=== PATIENT | female | born 1955 | race Caucasian/White ===

== ENCOUNTER 2017-08-11 14:47 | Emergency (ER) | payer MEDICARE, SELFPAY ==
[2017-08-11 14:48] VITALS: BP 161/85; PULSE 82; RESP 15; TEMP 36.9; O2SAT 100; BMI 31.4
--- NOTE | 2017-08-11 15:16 | US_ITS ---
US Gallbladder (abdomen limited) INDICATION: RUQ pain COMPARISON: None TECHNIQUE: Ultrasonographic grayscale and limited Doppler investigation of the right upper quadrant FINDINGS: The liver measures 15.2 cm and demonstrates normal echogenicity. Flow in the portal vein is hepatopedal. Common bile duct measures 2.4 mm. There is a single stone in the gallbladder. The stone is large and measures approximately 4 cm. There is no evidence of globular wall thickening or pericholecystic fluid. There is no evidence of ultrasonographic Bender's sign. Views of the pancreas are limited. The right kidney measures 10 cm in length and is without evidence of hydronephrosis. US/Gallbladder IMPRESSION: Large solitary gallstone without evidence of acute cholecystitis on this ultrasound. at 1706 Reported and signed by: Victoria Eugene MD Electronically Signed: Victoria Eugene MD at 16:05 EDT Tel , Service support ,
--- NOTE | 2017-08-11 15:28 | ED.VISSUMM ---
- ER Visit Summary Date of Service: 08/11/17 Chief Complaint: Abdominal pain History of Present Illness: The patient is a 62 F presenting for evaluation secondary to abdominal pain. Patient states over the course last week and a half she really has not felt well. Patient states that she has been having waxing and waning right upper quadrant abdominal pain that radiates through to her right flank. Patient states that it comes and goes, it is associated with some worsening with eating. She endorses that she has some nausea associated with it but no vomiting. She denies any diarrhea but states that she did have a single mucousy stool today. No fevers associated with it. Review of systems otherwise negative. Physical Examination: Vital signs within normal limits. Well-nourished female no acute distress. No conjunctival pallor no scleral icterus. Moist mucous membranes. No JVD. Heart regular rate and rhythm lungs clear. Abdomen tender in the right upper quadrant no guarding or rebound negative Bender sign. There is right-sided CVA tenderness to percussion without any evidence of overlying vesicular rash. Normal distal pulses, calves are supple and equally symmetric. Remainder physical otherwise unremarkable. Test Results: CBC, chemistry, liver panel, lipase, urinalysis unremarkable. Right upper quadrant ultrasound with flank ultrasound shows a large gallstone in the gallbladder without evidence of cholecystitis. Kidney is normal. Emergency Department Course and Treatment: Patient presented for evaluation secondary to right upper quadrant pain with some radiation to the flank. She did have some worsening about an hour after she would eat things, there is concern for gallbladder pathology. Patient's laboratory workup was found to be unremarkable. Patient's imaging shows evidence of a large gallstone. Given the patient's overall clinical picture, I do believe that this likely is an element of biliary colic from cholelithiasis. Patient was recommended on a low-fat diet. She did request to be sent home with some nausea medication she will be given a dose of Zofran in the emergency department will be discharged with a course of the same. Patient will be given a follow-up with Dr. Kim Cain. Patient understands signs and symptoms for which to return. Disposition: Discharge Impression: 1. Biliary colic 2. Cholelithiasis without cholecystitis This note was generated with [employer]ation software. It may contain incorrect words, spelling, and punctuation that were not noted in review of the chart prior to signing ED Disposition - Plan for ED Patient: Disposition: Home or Assisted Living Chief Complaint: Abd Pain Diagnosis: Biliary colic, Cholelithiasis Instructions: ED Abdominal Pain Gallstone Poss Prescriptions: Ondansetron [Zofran Odt] 4 mg PO Q8H PRN PRN #10 tab PRN Reason: Nausea Referrals: Kim Cain MD [STAFF PHYSICIAN] - 1-2 Weeks
[2017-08-11 15:49] LABS: Absolute Lymphocyte Count 1.91 X10^3/ul (0.83-4.51); Absolute Neutrophil Count 3.5 X10^3/uL (2.0-7.7); Basophil# 0.08 X10^3/uL; Basophil% 1.2 % (0-1); Eosinophil# 0.47 X10^3/uL; Eosinophils% 7.3 % (0-5); Hematocrit 35.4 % (37-47); Hemoglobin 11.3 g/dl (12.0-15.0); Lymphocyte # 1.91 X10^3/ul (4.0); Lymphocyte % 29.6 % (19-41); Mean Corp Hgb Conc 31.9 g/gl (32-36); Mean Corpuscular Hgb 28.3 pg (27.0-32.0); Mean Corpuscular Volume 88.5 fL (81-99); Mean Platelet Vol. 9.9 fl (6.2-12.0); Monocyte# 0.47 X10^3/uL; Monocyte% 7.3 % (0-10); Neutrophil # 3.51 X10^3/uL (2.7-7.7); Neutrophil % 54.4 % (47-70); Platelet Count 402 K/mm3 (150-450); RBC Distribution Width CV 14.6 % (11.6-14.6); RBC Distribution Width SD 46.6 fl (35.1-43.9); White Blood Count 6.5 K/mm3 (4.4-11.0)
[2017-08-11 15:50] LABS: POSITIVE COUNT NO; POSITIVE DIFFERENTIAL NO; POSITIVE MORPHOLOGY NO
[2017-08-11 16:04] LABS: AST(SGOT) 10 U/L (15-37); Alanine Aminotransfer ALT/SGPT 15 U/L (13-56); Albumin, Serum 3.4 g/dL (3.2-5.0); Alkaline Phosphatase 62 U/L (45-117); Anion Gap 7 (5-15); BUN 17 mg/dL (7-18); BUN/Creat Ratio 19.2 RATIO (10-20); Calcium,Total 8.8 mg/dL (8.5-10.1); Chloride 104 mmol/L (98-107); Creatinine, Serum 0.89 mg/dL (0.55-1.02); EST Glomerular Filtration Rate 68 mL/min (>60); Est Glom Filt Rate - Afr Amer 82 mL/min (>60); Estimated Creatinine Clearance 59.78 ml/min; Globulin 3.4 g/dL (2.2-4.2); Glucose 92 mg/dL (74-106); Lipase 135 U/L (73-393); Potassium 3.9 mmol/L (3.5-5.1); Protein, Total 6.8 g/dL (6.4-8.2); Sodium Level 140 mmol/L (136-145)
[2017-08-11 16:22] LABS: Bacteria 0 SEEN /hpf (None Seen); Mucous, Urine 0 SEEN /hpf (<or=2+); Red Blood Cells-Urine 0 SEEN /hpf (0-5); White Blood Cells 0 SEEN /hpf (0-5)
[2017-08-11 16:38] LABS: Color, Urine Yellow (Yellow); Glucose, Dipstick Normal (Normal); Ketone-Dipstick Negative (Negative); Leukocyte Esterase-Dipstick 25 /ul (Negative); Nitrite-Dipstick Negative (Negative); Occult Blood-Urine 10 /ul (Negative); Protein-Dipstick Negative (Negative); Specific Gravity, Urine 1.015 (1.002-1.030); Urine Bilirubin Dipstick Negative (Negative); Urine Clarity Clear (Clear); Urine Urobilinogen Normal (Normal)
[2017-08-11 17:01] VITALS: BP 153/80; PULSE 63; RESP 17; O2SAT 100
[2017-08-11 17:03] LABS: Squamous Epithelial Cells - UA 0-5 SEEN /hpf (5-10)
[2017-08-11] MEDS: Ondansetron ODT 4 MG Tablet PO (17:27)
[2017-08-11 17:41] VITALS: PULSE 60; RESP 16; O2SAT 100
--- NOTE | 2017-08-11 17:42 | ED.RN ---
PT GIVEN VERBAL AND WRITTEN DISCHARGE INSTRUCTIONS AND HOME GOING PRESCRIPTIONS. PT VERBALIZES UNDERSTANDING. PT IV D/C AND COVERED WITH 2X2 GAUZE AND PAPER TAPE. PT TO FOLLOW UP WITH SURGEON. PT AMBULATORY HOME BY SELF. DRESSED SELF AND AMBULATES OUT OF DEPT. WITHOUT ASSISTANCE.
== END 2017-08-11 17:44 | disposition home or self-care (01) ==
PROVIDERS: Emergency Provider Emergency Medicine; Family Provider Nurse Practitioner; PCP Nurse Practitioner
DX: K80.50 Calculus of bile duct without cholangitis or cholecystitis without obstruction (principal); M19.90 Unspecified osteoarthritis, unspecified site; Z98.1 Arthrodesis status
CPT/HCPCS: 76705; 80053; 81001; 83690; 85025; 87077; 87086; 87088; 87186; 99284; A4216

== ENCOUNTER → 2017-09-03 14:40 | Outpatient (CLI) | payer MEDICARE, SELFPAY ==
--- NOTE | 2017-09-03 14:41 | VDLE_ITS ---
Reason For Study: RLE Pain RIGHT LEFT CFV is compressible, spontaneous, phasic, CFV is compressible, spontaneous, phasic, competent and demonstrates normal competent, and demonstrates normal augmentation. augmentation. FV is compressible, spontaneous, phasic, competent and demonstrates normal augmentation. POP V is compressible, spontaneous, phasic, competent and demonstrates normal augmentation. T/P Trunk is compressible. PTV is compressible. RT PerV is compressible. Rt GSV ablated. Procedure Exam performed in department. A preliminary report was called and/or faxed to Dr. Rodríguez. Interpretation Summary Deep veins of the right lower extremity are patent and compressible segmentally. There is no evidence of right lower extremity deep vein thrombosis. Valvular competence appears intact within the proximal deep venous system on the right . The right great saphenous vein has been previously ablated. Ordering Physician: Dimple Rodríguez Referring Physician: Nevin Boyer Performed By: Callie Hollingsworth RDCS, RVT
== END ==
PROVIDERS: Family Provider Nurse Practitioner; PCP Nurse Practitioner; Visit Provider Podiatrist
DX: I87.2 Venous insufficiency (chronic) (peripheral) (principal); M79.604 Pain in right leg; I82.409 Acute embolism and thrombosis of unspecified deep veins of unspecified lower extremity
CPT/HCPCS: 93971

== ENCOUNTER → 2017-09-12 16:53 | Outpatient (CLI) | payer MEDICARE, SELFPAY ==
[2017-09-12 17:55] LABS: Absolute Lymphocyte Count 2.72 X10^3/ul (0.83-4.51); Absolute Neutrophil Count 3.2 X10^3/uL (2.0-7.7); Basophil# 0.05 X10^3/uL; Basophil% 0.7 % (0-1); Eosinophil# 0.28 X10^3/uL; Eosinophils% 4.2 % (0-5); Hematocrit 38.6 % (37-47); Lymphocyte # 2.72 X10^3/ul (4.0); Lymphocyte % 40.5 % (19-41); Mean Corp Hgb Conc 31.1 g/gl (32-36); Mean Corpuscular Hgb 27.5 pg (27.0-32.0); Mean Corpuscular Volume 88.3 fL (81-99); Mean Platelet Vol. 10.3 fl (6.2-12.0); Monocyte# 0.49 X10^3/uL; Monocyte% 7.3 % (0-10); Neutrophil # 3.17 X10^3/uL (2.7-7.7); Neutrophil % 47.2 % (47-70); Platelet Count 392 K/mm3 (150-450); RBC Distribution Width CV 13.7 % (11.6-14.6); RBC Distribution Width SD 44.6 fl (35.1-43.9); Red Blood Count 4.37 M/mm3 (4.2-5.4); White Blood Count 6.7 K/mm3 (4.4-11.0)
[2017-09-12 18:01] LABS: POSITIVE COUNT NO; POSITIVE DIFFERENTIAL NO; POSITIVE MORPHOLOGY NO
[2017-09-12 18:14] LABS: Partial Thromboplast Time 30.4 Seconds (24.1-36.2)
[2017-09-12 18:28] LABS: ALB/GLOB Ratio 1.2 RATIO (0.9-2.4); AST(SGOT) 17 U/L (15-37); Alanine Aminotransfer ALT/SGPT 22 U/L (13-56); Albumin, Serum 4.2 g/dL (3.2-5.0); Alkaline Phosphatase 65 U/L (45-117); Anion Gap 8 (5-15); BUN 18 mg/dL (7-18); BUN/Creat Ratio 20.6 RATIO (10-20); Calcium,Total 9.3 mg/dL (8.5-10.1); Chloride 104 mmol/L (98-107); Creatinine, Serum 0.87 mg/dL (0.55-1.02); EST Glomerular Filtration Rate 69 mL/min (>60); Est Glom Filt Rate - Afr Amer 84 mL/min (>60); Globulin 3.4 g/dL (2.2-4.2); Glucose 83 mg/dL (74-106); Potassium 3.8 mmol/L (3.5-5.1); Protein, Total 7.6 g/dL (6.4-8.2); Sodium Level 141 mmol/L (136-145)
== END ==
PROVIDERS: Family Provider Nurse Practitioner; PCP Nurse Practitioner; Visit Provider Internal Medicine
DX: Z01.818 Encounter for other preprocedural examination (principal)
CPT/HCPCS: 36415; 80053; 85025; 85610; 85730

== ENCOUNTER → 2017-09-14 08:45 | Outpatient (CLI) | payer MEDICARE, SELFPAY ==
--- NOTE | 2017-09-14 08:49 | VDLE_ITS ---
Reason For Study: LEG SWELLING RIGHT LEFT CFV is compressible, spontaneous, phasic, CFV is compressible, spontaneous, phasic, competent and demonstrates normal competent, and demonstrates normal augmentation. augmentation. FV is compressible, spontaneous, phasic, FV is compressible, spontaneous, phasic, competent and demonstrates normal competent and demonstrates normal augmentation. augmentation. POP V is compressible, spontaneous, phasic, POP V is compressible, spontaneous, phasic, competent and demonstrates normal competent and demonstrates normal augmentation. augmentation. T/P Trunk is compressible. T/P Trunk is compressible. PTV is compressible. PTV is compressible. RT PerV is compressible. LT PerV is compressible. GSV ablated. SFJ is competent SFJ is INCOMPETENT with reflux greater GSV is INCOMPETENT with reflux greater than .5 sec ASV at SFJ is INCOMPETENT with than .5 sec and diameter of .30 x .28 cm reflux greater than .5 sec and diameter ASV at SFJ is INCOMPETENt with reflux of .37 x .41 cm greater than .5 sec and diameter of .39 SSV is INCOMPETENT with reflux greater x .40 cm than .5 sec and diameter of .23 x .23 cm SSV diminutive unable to assess GSV branch distal calf is INCOMPETENT with SSV branch is INCOMPETENT with reflux reflux greater than .5 sec. greater than .5 sec and diameter of.40 x .42 Procedure cm. Exam performed in department. Interpretation Summary Deep veins of the lower extremities are bilaterally patent and compressible segmentally. There is no evidence of deep vein thrombosis on either side. Valvular competence appears intact within the proximal deep venous systems bilaterally. The right sapheno-femoral junction is incompetent . The left sapheno-femoral junction is competent . The right greater saphenous vein has been ablated. The left greater saphenous vein is patent and compressible. The left greater saphenous vein is incompetent. The right accessory saphenous vein at the right sapheno-femoral junction is incompetent. The left accessory saphenous vein at the left sapheno-femoral junction is incompetent. A branch of the right greater saphenous vein in the right calf is incompetent. The right small saphenous vein is patent and incompetent. The left small saphenous vein is diminutive in size and could not be assessed. A branch of the left small saphenous vein is incompetent. Ordering Physician: Dimple Rodríguez Referring Physician: Nevin Boyer Performed By: Lynn Barrera RVT
== END ==
PROVIDERS: Family Provider Nurse Practitioner; PCP Nurse Practitioner; Visit Provider Podiatrist
DX: R60.0 Localized edema (principal); I87.2 Venous insufficiency (chronic) (peripheral); I82.409 Acute embolism and thrombosis of unspecified deep veins of unspecified lower extremity; M79.604 Pain in right leg
CPT/HCPCS: 93970

== ENCOUNTER 2017-10-01 05:44 | Day surgery (SDC) | payer MEDICARE, SELFPAY ==
[2017-10-01] VITALS (10 sets, daily range): BP systolic 93–161; BP diastolic 51–84; PULSE 58–81; RESP 16–18; TEMP 36.4–37.3; O2SAT 94–100; BMI 32.8
--- NOTE | 2017-10-01 | GALL_PTH ---
PATIENT: HATTIE DAILY LOC: [facility] [place] U#:[id number] AGE/SX: 62/F ROOM: RE10/01/[address]: Dr. Kim Cain MD : [id number] BED: DIS: 10/01/2017 SPEC #: [id number] RECD: 10/01/17 13:43 STATUS: KILEY VIOLA #: [id number] DINESH: 10/01/17 00:[address]: Kim Cain DEPT: SURGICAL PATHOLOGY RECD BY: Frnacisco Tong ENTERED: 10/01/17 13:43 SP TYPE: MATEO GUSTAFSON DR: Nevin Boyer, SENIOR CONTROLS ANALYST-C Tissues: Gallbladder, NOS Procedures: Surgery Specimen Level III HEADER OPERATION: Laparoscopic cholecystectomy with intraoperative cholangiogram PRE-OP DIAGNOSIS: Calculus of gallbladder without cholecystitis without obstruction TISSUE SUBMITTED: Gallbladder MICROSCOPIC DIAGNOSIS Gallbladder: Chronic cholecystitis and cholelithiasis. A benign pericystic lymph node with reactive changes. SJ:racheal 10/02/17 MICROSCOPIC DESCRIPTION Slides are reviewed. GROSS DESCRIPTION Received is one container labeled with the patient's name and designated gallbladder. The specimen consists of a gallbladder measuring 10.5 cm in length and up to 3.5 cm in diameter. The external surface is pink-wood, smooth and glistening for the most part. Focally it is granular, hemorrhagic and contains cautery artifact. The gallbladder contains a very small amount of green-yellow mucoid bile and multiple irregular to ovoid brown to yellow stones measuring in aggregate 4.5 x 5 x 3 cm and 1.5 to 3.5 cm in greatest dimension. The largest stone is present at the fundus. The mucosa is bile-stained and without any mass lesions. The gallbladder wall measures up to 0.2 cm in thickness. An ovoid piece of wood-pink tissue is noted close to cystic duct, a possible lymph node. Miscellaneous Machine Operator sections from the gallbladder and the cystic duct and including the entire possible lymph node are submitted in one cassette. / CECILY:racheal 10/01/17 TC:3 CPT: 11459
--- NOTE | 2017-10-01 05:53 | EKG12_ITS ---
Test Reason : PRE-OP Blood Pressure : / mmHG Vent. Rate : 076 BPM Atrial Rate : 076 BPM P-R Int : 174 ms QRS Dur : 090 ms QT Int : 410 ms P-R-T Axes : 040 -09 000 degrees QTc Int : 461 ms Normal sinus rhythm Normal ECG Confirmed by CHERYL FONTANEZ, TIEN ([id number]), research editor SHAHRZAD ROSA ([id number]) on 10/04/2017 1:04:25 PM Referred By: Kim Cain Confirmed By:TIEN LUNA MD
--- NOTE | 2017-10-01 07:15 | RAD_ITS ---
STUDY: INTRAOPERATIVE CHOLANGIOGRAM. REASON FOR EXAM: Female, 62 years old. Laparoscopic cholecystectomy. FLUOROSCOPY TIME (if supplied): (0:04) minutes/seconds TECHNIQUE: And intraoperative cholangiogram was performed by the surgeon. Single image was submitted. COMPARISON: None. FINDINGS: The common bile duct is opacified. No intraluminal filling defect is seen. There is free flow of contrast into the duodenum. RAD/Cholangiogram/ O R,Initial IMPRESSION: Unremarkable intraoperative cholangiogram of the common bile duct. Electronically Signed: Laryr Sethi MD at 9:36 EDT Tel [phone], Service support ,
--- NOTE | 2017-10-01 07:18 | OP.PN_ITS ---
Immediate Post-Op Note Date of Procedure: 10/01/17 Primary Surgeon/Physician: Kim Cain auto bumper straightener: NOT,DEFINED Pre-Operative Diagnosis: cholelithiasis Post-Operative Diagnosis: cholelithiasis, cholecystitis Surgery/Procedure Performed:: laparoscopic cholecystectomy with intraoperative cholangiograms Description of Surgical Findings:: cholangiograms - no lesions in CBD, good flow into duodenum Estimated Blood Loss: < 10 ml Specimen's removed: gallbladder and contents Drains: none Type of Anesthesia:: General ASA Class: ASA2 Mod Systematic Disease - Admit VTE Documentation VTE Present on Admission: Yes VTE Mechan Device Prophylaxis: SCD's
--- NOTE | 2017-10-01 07:18 | PCM.DC.GB ---
Discharge Diet: No Restrictions Discharge Activity: Return to Normal Activity, May not drive while taking narcotic pain medications. Return to work on:: 10/15/17 Lifting Restrictions: no lifting greater than 20 pounds for 2 weeks Call your doctor if your incision/area has: Continuous Slow Oozing, Foul Smelling Discharge Call your doctor if you observe: Fever of 101 or Higher Additional Dressing/Incision Instructions:: Leave dressings in place. May get wet in shower. Do not soak - no tub baths/swimming until further notice Allergies/Adverse Reactions: Allergies lisinopril Adverse Reaction (Verified 10/01/17 06:13) COUGHING Medications to take at Discharge Acetaminophen [Pain Relief] 1,500 mg PO DAILY 09/24/17 Naproxen [Naprosyn] 250 mg PO DAILY PRN PRN 09/24/17 Hydrocodone Bitart/Apap 5-325 [[place] 5MG-325MG] 1 tab PO Q6H PRN PRN 3 Days #12 tab 10/01/17 Lorazepam [Ativan] 0.5 mg PO X1 10/01/17 The following prescriptions were given: Hydrocodone Bitart/Apap 5-325 [[place] 5MG-325MG] 1 tab PO Q6H PRN PRN 3 Days #12 tab PRN Reason: Pain Primary Care Physician: Nevin Boyer [Primary Care Provider] - Please Follow Up With: Kim Cain MD - call When: to be seen in 7-10 days, please call for date and time, thank you
--- NOTE | 2017-10-01 08:39 | PCM.OPRPT ---
Report of Operation Date of Procedure: 10/01/17 Pre-Operative Diagnosis: cholelithiasis Post-Operative Diagnosis: cholelithiasis, cholecystitis Surgery/Procedure Performed:: laparoscopic cholecystectomy with intraoperative cholangiograms Description of Surgical Findings:: cholangiograms - no lesions in CBD, good flow into duodenum narrow fabrics weaver: NOT,DEFINED Type of Anesthesia:: General Anesthesiologist: Devorah Meyer Specimen's removed: gallbladder and contents Drains: none Estimated Blood Loss (mL): < 10 ml Fluids Replaced: 1100 ml Description of Procedure: After informed consent was given, the patient was brought to the Operating Room and placed in the supine position. Appropriate time out protocol was followed. The patient was then placed under general endotracheal anesthesia. The abdomen was then prepped with a sterile surgical skin preparation and sterile surgical drapes were placed. The superior umbilical skin fold was grasped with penetrating clamps and the skin and subcutaneous tissues were infiltrated with local anesthetic. A skin incision was then made with a 15 blade scalpel. The anterior abdominal wall was elevated and a Veress needle was carefully inserted into the intraabdominal cavity. It was checked to be in the proper position with a normal saline drop test. A CO2 pneumoperitoneum was then created. Once this was achieved, then the Veress needle was removed and an 11mm trocar was placed in its stead. A 10mm laparoscope was then inserted into the trocar and careful attention was directed to the intraabdominal contents. There was no evidence of injury to any intraabdominal organs from insertion of the Veress needle or the trocar. Of note, patient had previous umbilical hernia repair and there was mesh present. Under direct visualization, a 5mm subxiphoid trocar and two lateral 5mm right subcostal trocars were placed. The skin and subcutaneous tissues at these sites were infiltrated with local anesthetic prior to placement of these trocars. Attention was then directed to the right upper quadrant of the abdomen. Graspers were placed in the lateral trocars to grasp the distal aspect of the gallbladder and direct it cephalad and to grasp the gallbladder at Hartmans pouch and direct it laterally. Dissection then began on the proximal gallbladder continuing down to the area of the triangle of Calot to bluntly dissect out the cystic duct. The neck of the gallbladder was identified and blunt dissection continued to dissect out a segment of the cystic duct. A clip was then placed on the neck of the gallbladder. A small ductotomy was then made. A Ranfac catheter was brought in through a separate skin incision and placed into the cystic duct. An intraoperative cholangiogram was performed under fluoroscopy. The xray revealed no lesions in the common bile duct, arborization of the biliary tree, and good flow into the duodenum. The Ranfac catheter was then removed and two clips were placed proximal to the ductotomy and the cystic duct was then transected. The cystic artery was visualized and bluntly isolated and then two clips were placed proximally and one clip distally and then it was transected between the proximal and distal clips. The gallbladder was then from the liver bed using electrocautery and thus able to be brought out of the umbilical port. It was then forwarded to pathology for analysis. The liver bed was carefully examined. There was no evidence of bile leakage or bleeding. The cystic duct stump and cystic artery stump had their clips intact and there was no evidence of bile leakage or bleeding. The remainder of the abdomen was grossly normal. The CO2 was released and all trocars removed intact. The periumbilical fascia was approximated with a [id number] 0 prolene suture. All skin incisions were closed with 4-0 monocryl in a subdermal fashion. Cavilol and Steristrips were used to reinforce the skin closure. Sterile dressings were applied to all wounds. The patient was extubated and brought to the Recovery Room in stable condition. - Complications none noted - Admit VTE Documentation VTE Present on Admission: Yes VTE Mechan Device Prophylaxis: SCD's
[2017-10-01] MEDS: HYDROcodone Bitartrate/Apap 5/325 Tablet PO (10:42)
[2017-10-01] MEDS: Lactated Ringers 1,000 ML 75 ML IV (12:06)
== END 2017-10-01 15:49 | disposition home or self-care (01) ==
LOC: SDC 05:47 → AC 05:49
PROVIDERS: Family Provider Nurse Practitioner; PCP Nurse Practitioner; Visit Provider Surgery
PROC: (CPT 47610; principal; 2017-10-01 06:55)
DX: K80.10 Calculus of gallbladder with chronic cholecystitis without obstruction (principal); I10 Essential (primary) hypertension; M19.90 Unspecified osteoarthritis, unspecified site; M51.36 Other intervertebral disc degeneration, lumbar region; Z86.718 Personal history of other venous thrombosis and embolism; M32.9 Systemic lupus erythematosus, unspecified; I73.00 Raynaud's syndrome without gangrene; Z79.899 Other long term (current) drug therapy; E66.9 Obesity, unspecified; Z68.34 Body mass index [BMI] 34.0-34.9, adult; Z71.3 Dietary counseling and surveillance
CPT/HCPCS: 47563; 74300; 76000; 88304; 93005; J7050; J7120; J2405

== ENCOUNTER 2017-10-08 13:04 | Outpatient (RCR) | payer BC, SELFPAY ==
[2017-10-08 13:40] VITALS: BP 164/96; PULSE 72; RESP 18; TEMP 36.6; BMI 33.1
--- NOTE | 2017-10-08 16:53 | PCM.WC.HP ---
(1) Chronic venous insufficiency Status: Chronic Current Visit: Yes Code(s): I87.2 - Venous insufficiency (chronic) (peripheral) (2) Venous stasis dermatitis Status: Chronic Current Visit: Yes Qualifiers: Laterality: right Qualified Code(s): I87.2 - Venous insufficiency (chronic) (peripheral) Code(s): I87.2 - Venous insufficiency (chronic) (peripheral) (3) Hemosiderin pigmentation of lower extremity due to varicose veins Status: Chronic Current Visit: Yes Code(s): L81.9 - Disorder of pigmentation, unspecified; I83.899 - Varicose veins of unspecified lower extremity with other complications (4) Lipodermatosclerosis Status: Chronic Current Visit: Yes Code(s): I83.10 - Varicose veins of unspecified lower extremity with inflammation (5) Venous ulcer of ankle Status: Chronic Current Visit: Yes Qualifiers: Varicose vein presence: with varicose veins Laterality: right Non-pressure ulcer stage: limited to breakdown of skin Qualified Code(s): I83.013 - Varicose veins of right lower extremity with ulcer of ankle; L97.311 - Non-pressure chronic ulcer of right ankle limited to breakdown of skin Code(s): I83.003 - Varicose veins of unspecified lower extremity with ulcer of ankle; L97.309 - Non-pressure chronic ulcer of unspecified ankle with unspecified severity (6) Osteoarthritis Status: Chronic Current Visit: No Code(s): M19.90 - Unspecified osteoarthritis, unspecified site (7) Lupus (systemic lupus erythematosus) Status: Chronic Current Visit: No Code(s): M32.9 - Systemic lupus erythematosus, unspecified (8) Degenerative disc disease, lumbar Status: Chronic Current Visit: No Code(s): M51.36 - Other intervertebral disc degeneration, lumbar region (9) Raynauds disease Status: Chronic Current Visit: No Qualifiers: Raynaud?s-associated gangrene presence: without gangrene Qualified Code(s): I73.00 - Raynaud's syndrome without gangrene Code(s): I73.00 - Raynaud's syndrome without gangrene (10) Recent major surgery Status: Acute Current Visit: Yes Code(s): Z98.890 - Other specified postprocedural states (11) History of superficial phlebitis Status: Chronic Current Visit: No Code(s): Z86.79 - Personal history of other diseases of the circulatory system (12) Post-phlebitic syndrome Status: Chronic Current Visit: Yes Code(s): I87.009 - Postthrombotic syndrome without complications of unspecified extremity (13) Hypertension Status: Chronic Current Visit: No Qualifiers: Hypertension type: essential hypertension Qualified Code(s): I10 - Essential (primary) hypertension Code(s): I10 - Essential (primary) hypertension History of Present Illness Date of Service: 10/08/17 Chief Complaint: Chronic venous insufficiency, venous stasis dermatitis, hyperpigmentation, lipodermatosclerosis, venous ulceration near the right medial malleolus. History of Wound: This is a 62-year-old female with a long-standing history of chronic venous disease. 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 She has been treated for venous ulcerations in the right lower extremity in the past. In fact, patient has previously undergone an endovenous laser ablation procedure in the right lower extremity in the remote past, though medical records are not currently available. She also has a history of acute superficial thrombophlebitis in the right lower extremity many years ago on one occasion. The patient is active. She claims to sleep flat at night. She presents with an ulceration near the right medial malleolus, which has recently developed spontaneously. The patient has chronic venous changes in her right lower extremity, which include hyperpigmentation and lipodermatosclerosis in the gaiter area medially. She denies significant swelling in her lower extremities. Past Medical History Past Medical History: Chronic Problems Chronic venous insufficiency (Chronic) Venous stasis dermatitis (Chronic) Hemosiderin pigmentation of lower extremity due to varicose veins (Chronic) Lipodermatosclerosis (Chronic) Venous ulcer of ankle (Chronic) Osteoarthritis (Chronic) Lupus (systemic lupus erythematosus) (Chronic) Degenerative disc disease, lumbar (Chronic) Raynauds disease (Chronic) History of superficial phlebitis (Chronic) Post-phlebitic syndrome (Chronic) Hypertension (Chronic) Past Medical History: Patient has a history of chronic venous disease, osteoarthritis, lupus, Raynaud's disease, hypertension, and degenerative disc disease of the lumbar area. She also has a remote history of superficial thrombophlebitis in the right lower extremity. Her history is negative for myocardial infarction, congestive heart failure, cerebrovascular accident, coronary disease, renal disease, thyroid disease, and hyperlipidemia. Surgical History: - - The patient is undergone endovenous laser ablation in the right lower extremity, though the procedure was performed in the remote past, and specifics regarding her procedure are not available. She has a history of lumbar fusion in 2010. Umbilical hernia repair has also been performed in the past. Patient underwent laparoscopic cholecystectomy only 1 week ago, from which she is recovering uneventfully. The patient is a Ab0. Allergies/Adverse Reactions: Allergies lisinopril Adverse Reaction (Verified 10/01/17 06:13) COUGHING Home Medications: Ambulatory Orders Medication Instructions Recorded Acetaminophen [Pain Relief] 1,500 mg PO DAILY 09/24/17 Naproxen [Naprosyn] 250 mg PO DAILY PRN PRN 09/24/17 - Family History Paternal - - Patient's father at the age of 80 with a history of diabetes mellitus, prostate cancer, and hypertension. The patient's mother at the age of 78 with a history of obesity, hypertension, and cardiac valve disease. Lives: Alone Smoking Status: Never smoker Tobacco Use: Non-smoker Alcohol: None Drugs: None Review of Systems Constitutional: Denies: Chills, Fever, Weight Change Eyes: Denies: Pain, Vision Change HEENT: Denies: Difficulty Hearing, Difficulty Swallowing, Sinus Congestion Cardiovascular: Denies: Chest Pain, Palpitations Respiratory: Denies: Cough, Shortness of Breath Gastrointestinal: Denies: Diarrhea, Nausea, Vomiting Genitourinary: Denies: Dysuria, Hematuria Endocrine: Denies: Heat/ Cold Intolerance, Polydipsia, Polyuria Hematologic/ Lymphatic: Denies: Easy Bruising, Easy Bleeding - Physical Exam Vital Signs Temp Pulse Resp BP 97.8 F 72 18 164/96 H 10/08/17 13:40 10/08/17 13:40 10/08/17 13:40 10/08/17 13:40 General: Alert, Oriented x3, Cooperative, No apparent distress, Well developed, Well nourished HEENT: Atraumatic, PERRLA, EOMI, Normocephalic Oral: Moist Mucosa, No Gingival or Mucosal Lesions/ Ulcerations Neck: Supple, No JVD, Negative Carotid Bruits, Negative Hepatojugular Reflux, No Nodes, No Nuchal Rigidity, Trachea Midline Lungs: Clear to auscultation, Normal air movement, No rhonchi, No wheeze, No rales Cardiovascular: Regular rate, Regular Rhythm, Normal S1, Normal S2, No murmurs Abdomen: Bowel Sounds Present, Soft, Non Tender, Non-Distended Extremities: No clubbing, No cyanosis, No edema, No Calf Tenderness, - - There is noted to be hyperpigmentation and lipodermatosclerosis medially in the gaiter area on the right lower extremity. Scaly dermatitic changes are noted near the right medial malleolus. Careful inspection reveals no lauryn open ulceration in this area, though a hint of a pre-ulcerative lesion. No significant swelling or edema is noted in the lower extremities. Skin: No rashes, No breakdown Wound Measurements and Assessment WC - Nurse 1 - General Ulcer Measurement Start: 10/08/17 13:34 Freq: Status: Active Protocol: Activity Type Activity Date Activity User E-Sign Co-Sign Detail Recorded Client Recorded Date Recorded By Document 10/08/17 13:40 DV [id number] 10/08/17 14:06 DV 10/08/17 13:40 Wound Center Nurse 1 [Ulcer Assessment] RIGHT MEDIAL MALLEOUS -Combined with other wound No -Current Size (cm) - Length 0.2 -Current Size (cm) - Width 0.1 -Current Size (cm) - Depth 0.1 -Total Square Cm 0.02 -Date of Last Picture (Recall this 10/08/17 field) -Photo Taken Yes -Epithelialization None Present -Tunneling No -Undermining/Tunneling No -Circular Undermining No -Classification - Thickness Full Thickness without Exposed Support Structure -Exudate Amt Small (1-33%) -Exudate Type Serous -Wound Margin Distinct, Outline Attached -Granulation Amt None Present (0 %) -Granulation Quality N/A -Slough/Fibrin Yes -Necrosis Amt Large (67-100%) -Necrotic Tissue Type Adherent Slough -Structure Exposed None/Limited to Skin Breakdown -Texture (Zahraa-wound Skin Appearance) Assessed Scarring -Moisture (Zahraa-wound Skin Appearance Assessed ) Dry/Scaly -Color (Zahraa-wound Skin Appearance) Assessed Mottled -Temperature (Zahraa-wound Skin No Abnormality Appearance) (Pt Warm) -Ulcer Cleansing Rinsed/ Irrigated with Saline -Foul Odor after Cleansing No -Anesthetic Used 4% Lidocaine Solution [Edema Assessment] -Lower Limb Edema Present No -Right Calf (cm) 38.5 -Right Ankle (cm) 21.0 -Left Calf (cm) 41.0 -Left Ankle (cm) 26.0 DEVON - Nurse 2 - General Ulcer CM Notes Start: 10/08/17 13:34 Freq: Status: Active Protocol: Activity Type Activity Date Activity User E-Sign Co-Sign Detail Recorded Client Recorded Date Recorded By Document 10/08/17 14:51 [id number] 10/08/17 15:05 10/08/17 14:51 Wound Center Nurse 2 [Procedure/Treatment] RIGHT MEDIAL MALLEOUS -Time 14:52 -Correct Patient Yes -Correct Side, Site, Position Yes -Correct Procedure Yes -Procedure Performed No -Wound/Ulcer Outcome Not Healed -Foul Odor after Cleansing No -Bioengineered Tissue No -Bleeding Controlled with NA [See Physician Procedure note for Specifics] Pain Scale: 0-10 Numeric [Pain] -Is Patient Pain Free? Yes Musculoskeletal: No Muscle Wasting Neurological: Cranial nerves II-XII grossly intact, Neuro grossly intact Psych/Mental Status: Normal Affect, Appropriate, Alert and oriented to time, place, person, mood and affect Debridement Note Post-Debridement Measurements/Treatment DEVON - Nurse 2 - General Ulcer CM Notes Start: 10/08/17 13:34 Freq: Status: Active Protocol: Activity Type Activity Date Activity User E-Sign Co-Sign Detail Recorded Client Recorded Date Recorded By Document 10/08/17 14:51 [id number] 10/08/17 15:05 10/08/17 14:51 Wound Center Nurse 2 RIGHT MEDIAL MALLEOUS -Time 14:52 -Correct Patient Yes -Correct Side, Site, Position Yes -Correct Procedure Yes -Procedure Performed No -Wound/Ulcer Outcome Not Healed -Foul Odor after Cleansing No -Bioengineered Tissue No -Bleeding Controlled with NA Pain Scale: 0-10 Numeric Is Patient Pain Free? Yes No debridement was completed today Assessment/Plan Active Problems Chronic venous insufficiency (Chronic) Venous stasis dermatitis (Chronic) Hemosiderin pigmentation of lower extremity due to varicose veins (Chronic) Lipodermatosclerosis (Chronic) Venous ulcer of ankle (Chronic) Recent major surgery (Acute) Post-phlebitic syndrome (Chronic) Assessment: This is a 62-year-old female with a long-standing history of chronic venous insufficiency, varicose veins with inflammation, postphlebitic syndrome with inflammation, history of superficial thrombophlebitis in the right lower extremity, and chronic venous changes in the right lower extremity which include previous ulcerations, lipodermatosclerosis, and hyperpigmentation. At this time, it does not appear as though she has a lauryn open ulceration. However, there appears to be a pre-ulcerative lesion near the right medial malleolus. Review of the patient's prior vascular studies reveal the right great saphenous vein to be ablated. Incompetence is noted in the right lower extremity involving the accessory saphenous vein at the saphenofemoral junction, and the small saphenous vein. Additionally, the branch of the right great saphenous vein in the distal calf is also noted to be incompetent. These findings were noted on a venous study performed on September 14, 2017. A noninvasive lower extremity arterial study, performed in April 2017, reveals no evidence of arterial occlusive disease to ankle level bilaterally, and only mild, distal, smallvessel arterial occlusive disease bilaterally. Recent laboratory studies have been reviewed, with results as follows: White blood count 6.7, hemoglobin 12.0, hematocrit 38.6, platelets 292,000, sodium 141, potassium 3.8, chloride 104, BUN 18, creatinine 0.87, total protein 7.6, albumin 4.2, total bilirubin 0.30. Plan: Compression is to be implemented to the lower extremities. Patient has been using Tubigrip's to the right lower extremity. We are to enhance the degree of compression to the right lower extremity. The patient has concerns as to donning of graduated compression stockings in the range of 20-30 mmHg. Therefore, we are to use compression stockings of 10-15 mmHg compression, and use a double stocking layer in the right lower extremity to provide adequate compression. Stockings will be donned earlier in the morning, and will be worn until bedtime. Patient has been advised to elevate her lower extremities as much as possible. Leg elevation is to be to heart level, or higher. She is to continue sleeping on a flat mattress at night. Activity has been encouraged. Prolonged idle sitting has been discouraged. The loss has been recommended. Patient will return in 2 weeks for reevaluation. Influenza vaccine was not administered today. The patient is not a smoker. Patient stands 5 feet 5 inches tall. She weighs 199 pounds. Her BMI is 33.1, which places her in a class I category. Weight loss has been recommended, and collaboration with the patient's primary care physician has been advised.
--- NOTE | 2017-10-08 17:04 | HP.PCM_ITS ---
(1) Chronic venous insufficiency Status: Chronic Current Visit: Yes Code(s): I87.2 - Venous insufficiency ( chronic) (peripheral) (2) Venous stasis dermatitis Status: Chronic Current Visit: Yes Qualifiers: Laterality: right Qualified Code(s): I87.2 - Venous insufficiency (chronic ) (peripheral) Code(s): I87.2 - Venous insufficiency (chronic) (peripheral) (3) Hemosiderin pigmentation of lower extremity due to varicose veins Status: Chronic Current Visit: Yes Code(s): L81.9 - Disorder of pigmentation , unspecified; I83.899 - Varicose veins of unspecified lower extremity with other complications (4) Lipodermatosclerosis Status: Chronic Current Visit: Yes Code(s): I83.10 - Varicose veins of unspecified lower extremity with inflammation (5) Venous ulcer of ankle Status: Chronic Current Visit: Yes Qualifiers: Varicose vein presence: with varicose veins Laterality: right Non- pressure ulcer stage: limited to breakdown of skin Qualified Code(s): I83.013 - Varicose veins of right lower extremity with ulcer of ankle; L97.311 - Non- pressure chronic ulcer of right ankle limited to breakdown of skin Code(s): I83.003 - Varicose veins of unspecified lower extremity with ulcer of ankle; L97.309 - Non-pressure chronic ulcer of unspecified ankle with unspecified severity (6) Osteoarthritis Status: Chronic Current Visit: No Code(s): M19.90 - Unspecified osteoarthritis, unspecified site (7) Lupus (systemic lupus erythematosus) Status: Chronic Current Visit: No Code(s): M32.9 - Systemic lupus erythematosus, unspecified (8) Degenerative disc disease, lumbar Status: Chronic Current Visit: No Code(s): M51.36 - Other intervertebral disc degeneration, lumbar region (9) Raynauds disease Status: Chronic Current Visit: No Qualifiers: Raynaud?s-associated gangrene presence: without gangrene Qualified Code(s) : I73.00 - Raynaud's syndrome without gangrene Code(s): I73.00 - Raynaud's syndrome without gangrene (10) Recent major surgery Status: Acute Current Visit: Yes Code(s): Z98.890 - Other specified postprocedural states (11) History of superficial phlebitis Status: Chronic Current Visit: No Code(s): Z86.79 - Personal history of other diseases of the circulatory system (12) Post-phlebitic syndrome Status: Chronic Current Visit: Yes Code(s): I87.009 - Postthrombotic syndrome without complications of unspecified extremity (13) Hypertension Status: Chronic Current Visit: No Qualifiers: Hypertension type: essential hypertension Qualified Code(s): I10 - Essential (primary) hypertension Code(s): I10 - Essential (primary) hypertension History of Present Illness Date of Service: 10/08/17 Chief Complaint: Chronic venous insufficiency, venous stasis dermatitis, hyperpigmentation, lipodermatosclerosis, venous ulceration near the right medial malleolus. History of Wound: This is a 62-year-old female with a long-standing history of chronic venous disease. 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 She has been treated for venous ulcerations in the right lower extremity in the past. In fact, patient has previously undergone an endovenous laser ablation procedure in the right lower extremity in the remote past, though medical records are not currently available. She also has a history of acute superficial thrombophlebitis in the right lower extremity many years ago on one occasion. The patient is active. She claims to sleep flat at night. She presents with an ulceration near the right medial malleolus, which has recently developed spontaneously. The patient has chronic venous changes in her right lower extremity, which include hyperpigmentation and lipodermatosclerosis in the gaiter area medially. She denies significant swelling in her lower extremities. Past Medical History Past Medical History: Chronic Problems Chronic venous insufficiency (Chronic) Venous stasis dermatitis (Chronic) Hemosiderin pigmentation of lower extremity due to varicose veins (Chronic) Lipodermatosclerosis (Chronic) Venous ulcer of ankle (Chronic) Osteoarthritis (Chronic) Lupus (systemic lupus erythematosus) (Chronic) Degenerative disc disease, lumbar (Chronic) Raynauds disease (Chronic) History of superficial phlebitis (Chronic) Post-phlebitic syndrome (Chronic) Hypertension (Chronic) Past Medical History: Patient has a history of chronic venous disease, osteoarthritis, lupus, Raynaud's disease, hypertension, and degenerative disc disease of the lumbar area. She also has a remote history of superficial thrombophlebitis in the right lower extremity. Her history is negative for myocardial infarction, congestive heart failure, cerebrovascular accident, coronary disease, renal disease, thyroid disease, and hyperlipidemia. Surgical History: - - The patient is undergone endovenous laser ablation in the right lower extremity, though the procedure was performed in the remote past, and specifics regarding her procedure are not available. She has a history of lumbar fusion in 2010. Umbilical hernia repair has also been performed in the past. Patient underwent laparoscopic cholecystectomy only 1 week ago, from which she is recovering uneventfully. The patient is a Ab0. Allergies/Adverse Reactions: Allergies lisinopril Adverse Reaction (Verified 10/01/17 06:13) COUGHING Home Medications: Ambulatory Orders Medication Instructions Recorded Acetaminophen [Pain Relief] 1,500 mg PO DAILY 09/24/17 Naproxen [Naprosyn] 250 mg PO DAILY PRN PRN 09/24/17 - Family History Paternal - - Patient's father at the age of 80 with a history of diabetes mellitus, prostate cancer, and hypertension. The patient's mother at the age of 78 with a history of obesity, hypertension, and cardiac valve disease. Lives: Alone Smoking Status: Never smoker Tobacco Use: Non-smoker Alcohol: None Drugs: None Review of Systems Constitutional: Denies: Chills, Fever, Weight Change Eyes: Denies: Pain, Vision Change HEENT: Denies: Difficulty Hearing, Difficulty Swallowing, Sinus Congestion Cardiovascular: Denies: Chest Pain, Palpitations Respiratory: Denies: Cough, Shortness of Breath Gastrointestinal: Denies: Diarrhea, Nausea, Vomiting Genitourinary: Denies: Dysuria, Hematuria Endocrine: Denies: Heat/ Cold Intolerance, Polydipsia, Polyuria Hematologic/ Lymphatic: Denies: Easy Bruising, Easy Bleeding - Physical Exam Vital Signs Temp Pulse Resp BP 97.8 F 72 18 164/96 H 10/08/17 13:40 10/08/17 13:40 10/08/17 13:40 10/08/17 13:40 General: Alert, Oriented x3, Cooperative, No apparent distress, Well developed, Well nourished HEENT: Atraumatic, PERRLA, EOMI, Normocephalic Oral: Moist Mucosa, No Gingival or Mucosal Lesions/ Ulcerations Neck: Supple, No JVD, Negative Carotid Bruits, Negative Hepatojugular Reflux, No Nodes, No Nuchal Rigidity, Trachea Midline Lungs: Clear to auscultation, Normal air movement, No rhonchi, No wheeze, No rales Cardiovascular: Regular rate, Regular Rhythm, Normal S1, Normal S2, No murmurs Abdomen: Bowel Sounds Present, Soft, Non Tender, Non-Distended Extremities: No clubbing, No cyanosis, No edema, No Calf Tenderness, - - There is noted to be hyperpigmentation and lipodermatosclerosis medially in the gaiter area on the right lower extremity. Scaly dermatitic changes are noted near the right medial malleolus. Careful inspection reveals no lauryn open ulceration in this area, though a hint of a pre-ulcerative lesion. No significant swelling or edema is noted in the lower extremities. Skin: No rashes, No breakdown Wound Measurements and Assessment WC - Nurse 1 - General Ulcer Measurement Start: 10/08/17 13:34 Freq: Status: Active Protocol: Activity Type Activity Date Activity User E-Sign Co-Sign Detail Recorded Client Recorded Date Recorded By Document 10/08/17 13:40 DV [id number] 10/08/17 14:06 DV 10/08/17 13:40 Wound Center Nurse 1 [Ulcer Assessment] RIGHT MEDIAL MALLEOUS -Combined with other wound No -Current Size (cm) - Length 0.2 -Current Size (cm) - Width 0.1 -Current Size (cm) - Depth 0.1 -Total Square Cm 0.02 -Date of Last Picture (Recall this 10/08/17 field) -Photo Taken Yes -Epithelialization None Present -Tunneling No -Undermining/Tunneling No -Circular Undermining No -Classification - Thickness Full Thickness without Exposed Support Structure -Exudate Amt Small (1-33%) -Exudate Type Serous -Wound Margin Distinct, Outline Attached -Granulation Amt None Present (0 %) -Granulation Quality N/A -Slough/Fibrin Yes -Necrosis Amt Large (67-100%) -Necrotic Tissue Type Adherent Slough -Structure Exposed None/Limited to Skin Breakdown -Texture (Zahraa-wound Skin Appearance) Assessed Scarring -Moisture (Zahraa-wound Skin Appearance Assessed ) Dry/Scaly -Color (Zahraa-wound Skin Appearance) Assessed Mottled -Temperature (Zahraa-wound Skin No Abnormality Appearance) (Pt Warm) -Ulcer Cleansing Rinsed/ Irrigated with Saline -Foul Odor after Cleansing No -Anesthetic Used 4% Lidocaine Solution [Edema Assessment] -Lower Limb Edema Present No -Right Calf (cm) 38.5 -Right Ankle (cm) 21.0 -Left Calf (cm) 41.0 -Left Ankle (cm) 26.0 DEVON - Nurse 2 - General Ulcer CM Notes Start: 10/08/17 13:34 Freq: Status: Active Protocol: Activity Type Activity Date Activity User E-Sign Co-Sign Detail Recorded Client Recorded Date Recorded By Document 10/08/17 14:51 [id number] 10/08/17 15:05 10/08/17 14:51 Wound Center Nurse 2 [Procedure/Treatment] RIGHT MEDIAL MALLEOUS -Time 14:52 -Correct Patient Yes -Correct Side, Site, Position Yes -Correct Procedure Yes -Procedure Performed No -Wound/Ulcer Outcome Not Healed -Foul Odor after Cleansing No -Bioengineered Tissue No -Bleeding Controlled with NA [See Physician Procedure note for Specifics] Pain Scale: 0-10 Numeric [Pain] -Is Patient Pain Free? Yes Musculoskeletal: No Muscle Wasting Neurological: Cranial nerves II-XII grossly intact, Neuro grossly intact Psych/Mental Status: Normal Affect, Appropriate, Alert and oriented to time, place, person, mood and affect Debridement Note Post-Debridement Measurements/Treatment DEVON - Nurse 2 - General Ulcer CM Notes Start: 10/08/17 13:34 Freq: Status: Active Protocol: Activity Type Activity Date Activity User E-Sign Co-Sign Detail Recorded Client Recorded Date Recorded By Document 10/08/17 14:51 [id number] 10/08/17 15:05 10/08/17 14:51 Wound Center Nurse 2 RIGHT MEDIAL MALLEOUS -Time 14:52 -Correct Patient Yes -Correct Side, Site, Position Yes -Correct Procedure Yes -Procedure Performed No -Wound/Ulcer Outcome Not Healed -Foul Odor after Cleansing No -Bioengineered Tissue No -Bleeding Controlled with NA Pain Scale: 0-10 Numeric Is Patient Pain Free? Yes No debridement was completed today Assessment/Plan Active Problems Chronic venous insufficiency (Chronic) Venous stasis dermatitis (Chronic) Hemosiderin pigmentation of lower extremity due to varicose veins (Chronic) Lipodermatosclerosis (Chronic) Venous ulcer of ankle (Chronic) Recent major surgery (Acute) Post-phlebitic syndrome (Chronic) Assessment: This is a 62-year-old female with a long-standing history of chronic venous insufficiency, varicose veins with inflammation, postphlebitic syndrome with inflammation, history of superficial thrombophlebitis in the right lower extremity, and chronic venous changes in the right lower extremity which include previous ulcerations, lipodermatosclerosis, and hyperpigmentation. At this time, it does not appear as though she has a lauryn open ulceration. However, there appears to be a pre-ulcerative lesion near the right medial malleolus. Review of the patient's prior vascular studies reveal the right great saphenous vein to be ablated. Incompetence is noted in the right lower extremity involving the accessory saphenous vein at the saphenofemoral junction, and the small saphenous vein. Additionally, the branch of the right great saphenous vein in the distal calf is also noted to be incompetent. These findings were noted on a venous study performed on August. A noninvasive lower extremity arterial study, performed in April 2017, reveals no evidence of arterial occlusive disease to ankle level bilaterally, and only mild, distal, small?vessel arterial occlusive disease bilaterally. Recent laboratory studies have been reviewed, with results as follows: White blood count 6.7, hemoglobin 12.0, hematocrit 38.6, platelets 292, 000, sodium 141, potassium 3.8, chloride 104, BUN 18, creatinine 0.87, total protein 7.6, albumin 4.2, total bilirubin 0.30. Plan: Compression is to be implemented to the lower extremities. Patient has been using Tubigrip's to the right lower extremity. We are to enhance the degree of compression to the right lower extremity. The patient has concerns as to donning of graduated compression stockings in the range of 20-30 mmHg. Therefore, we are to use compression stockings of 10-15 mmHg compression, and use a double stocking layer in the right lower extremity to provide adequate compression. Stockings will be donned earlier in the morning, and will be worn until bedtime. Patient has been advised to elevate her lower extremities as much as possible. Leg elevation is to be to heart level, or higher. She is to continue sleeping on a flat mattress at night. Activity has been encouraged. Prolonged idle sitting has been discouraged. The loss has been recommended. Patient will return in 2 weeks for reevaluation. Influenza vaccine was not administered today. The patient is not a smoker. Patient stands 5 feet 5 inches tall. She weighs 199 pounds. Her BMI is 33.1, which places her in a class I category. Weight loss has been recommended, and collaboration with the patient's primary care physician has been advised.
== END 2017-10-18 23:59 ==
LOC: WC 13:04
PROVIDERS: Family Provider Nurse Practitioner; PCP Nurse Practitioner; Visit Provider Surgery
DX: I83.013 Varicose veins of right lower extremity with ulcer of ankle (principal); I83.10 Varicose veins of unspecified lower extremity with inflammation; L81.9 Disorder of pigmentation, unspecified; L97.311 Non-pressure chronic ulcer of right ankle limited to breakdown of skin; I83.003 Varicose veins of unspecified lower extremity with ulcer of ankle; M19.90 Unspecified osteoarthritis, unspecified site; M51.36 Other intervertebral disc degeneration, lumbar region; I73.00 Raynaud's syndrome without gangrene; Z98.890 Other specified postprocedural states; I10 Essential (primary) hypertension; Z68.33 Body mass index [BMI] 33.0-33.9, adult; E66.9 Obesity, unspecified
CPT/HCPCS: 99212; G0463

== ENCOUNTER 2017-10-22 15:47 | Outpatient (RCR) | payer MEDICARE, SELFPAY ==
[2017-10-19 01:08] VITALS: BP 164/96; PULSE 72; RESP 18; TEMP 36.6
--- NOTE | 2017-10-29 13:43 | PCM.WC.HP ---
(1) Recent major surgery Status: Acute Code(s): Z98.890 - Other specified postprocedural states (2) Chronic venous insufficiency Status: Chronic Code(s): I87.2 - Venous insufficiency (chronic) (peripheral) (3) Degenerative disc disease, lumbar Status: Chronic Code(s): M51.36 - Other intervertebral disc degeneration, lumbar region (4) Hemosiderin pigmentation of lower extremity due to varicose veins Status: Chronic Code(s): L81.9 - Disorder of pigmentation, unspecified; I83.899 - Varicose veins of unspecified lower extremity with other complications (5) History of superficial phlebitis Status: Chronic Code(s): Z86.79 - Personal history of other diseases of the circulatory system (6) Hypertension Status: Chronic Qualifiers: Code(s): I10 - Essential (primary) hypertension (7) Lipodermatosclerosis Status: Chronic Code(s): I83.10 - Varicose veins of unspecified lower extremity with inflammation (8) Lupus (systemic lupus erythematosus) Status: Chronic Code(s): M32.9 - Systemic lupus erythematosus, unspecified (9) Osteoarthritis Status: Chronic Code(s): M19.90 - Unspecified osteoarthritis, unspecified site (10) Post-phlebitic syndrome Status: Chronic Code(s): I87.009 - Postthrombotic syndrome without complications of unspecified extremity (11) Raynauds disease Status: Chronic Qualifiers: Code(s): I73.00 - Raynaud's syndrome without gangrene (12) Venous stasis dermatitis Status: Chronic Qualifiers: Code(s): I87.2 - Venous insufficiency (chronic) (peripheral) (13) Venous ulcer of ankle Status: Chronic Qualifiers: Code(s): I83.003 - Varicose veins of unspecified lower extremity with ulcer of ankle; L97.309 - Non-pressure chronic ulcer of unspecified ankle with unspecified severity History of Present Illness Date of Service: 10/29/17 Chief Complaint: Chronic venous insufficiency, venous stasis dermatitis, hyperpigmentation, lipodermatosclerosis, venous ulceration near the right medial malleolus. History of Wound: This is a 62-year-old female with a long-standing history of chronic venous disease. 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 She has been treated for venous ulcerations in the right lower extremity in the past. In fact, the patient has previously undergone an endovenous laser ablation procedure in the right lower extremity in the remote past, though medical records are not currently available. She also has a history of acute superficial thrombophlebitis in the right lower extremity many years ago on one occasion. The patient is active. She claims to sleep flat at night. She presented with an ulceration near the right medial malleolus, which recently developed spontaneously. The patient has chronic venous changes in her right lower extremity, which include hyperpigmentation and lipodermatosclerosis in the gaiter area medially. She denies significant swelling in her lower extremities. Past Medical History Past Medical History: Chronic Problems Chronic venous insufficiency (Chronic) Venous stasis dermatitis (Chronic) Hemosiderin pigmentation of lower extremity due to varicose veins (Chronic) Lipodermatosclerosis (Chronic) Venous ulcer of ankle (Chronic) Osteoarthritis (Chronic) Lupus (systemic lupus erythematosus) (Chronic) Degenerative disc disease, lumbar (Chronic) Raynauds disease (Chronic) History of superficial phlebitis (Chronic) Post-phlebitic syndrome (Chronic) Hypertension (Chronic) Surgical History: - - The patient is undergone endovenous laser ablation in the right lower extremity, though the procedure was performed in the remote past, and specifics regarding her procedure are not available. She has a history of lumbar fusion in 2010. Umbilical hernia repair has also been performed in the past. Patient underwent laparoscopic cholecystectomy only 1 week ago, from which she is recovering uneventfully. The patient is a Ab0. Allergies/Adverse Reactions: Allergies lisinopril Adverse Reaction (Verified 10/01/17 06:13) COUGHING Home Medications: Ambulatory Orders Medication Instructions Recorded Acetaminophen [Pain Relief] 1,500 mg PO DAILY 09/24/17 Naproxen [Naprosyn] 250 mg PO DAILY PRN PRN 09/24/17 - Family History Paternal - - Patient's father at the age of 80 with a history of diabetes mellitus, prostate cancer, and hypertension. The patient's mother at the age of 78 with a history of obesity, hypertension, and cardiac valve disease. Smoking Status: Never smoker Tobacco Use: Non-smoker Review of Systems Constitutional: Denies: Chills, Fever, Weight Change Eyes: Denies: Pain, Vision Change HEENT: Denies: Difficulty Hearing, Difficulty Swallowing, Sinus Congestion Cardiovascular: Denies: Chest Pain, Palpitations Respiratory: Denies: Cough, Shortness of Breath Gastrointestinal: Denies: Diarrhea, Nausea, Vomiting Genitourinary: Denies: Dysuria, Hematuria Endocrine: Denies: Heat/ Cold Intolerance, Polydipsia, Polyuria Hematologic/ Lymphatic: Denies: Easy Bruising, Easy Bleeding - Physical Exam Vital Signs Temp Pulse Resp BP 97.8 F 72 18 164/96 H 10/19/17 01:08 10/19/17 01:08 10/19/17 01:08 10/19/17 01:08 General: Alert, Oriented x3, Cooperative, No apparent distress, Well developed, Well nourished HEENT: Atraumatic, PERRLA, EOMI, Normocephalic Oral: Moist Mucosa Neck: No JVD Lungs: Normal air movement Abdomen: Non-Distended Extremities: No clubbing, No cyanosis, No edema, No Calf Tenderness, - - There is no significant swelling or edema in the lower extremities. There are chronic changes in the distal right lower extremity, located in the gaiter area medially. These chronic changes include lipodermatosclerosis and hyperpigmentation. There are no open wounds or ulcerations. The site near the right medial malleolus is completely epithelialized. Skin: No rashes, No breakdown Neurological: Cranial nerves II-XII grossly intact, Neuro grossly intact Psych/Mental Status: Normal Affect, Appropriate, Alert and oriented to time, place, person, mood and affect Debridement Note No debridement was completed today Assessment/Plan Assessment: This is a 62-year-old female with a long-standing history of chronic venous insufficiency, varicose veins with inflammation, postphlebitic syndrome with inflammation, history of superficial thrombophlebitis in the right lower extremity, and chronic venous changes in the right lower extremity which include previous ulcerations, lipodermatosclerosis, and hyperpigmentation. At this time, it does not appear as though she has a lauryn open ulceration. However, there appears to be a pre-ulcerative lesion near the right medial malleolus. Review of the patient's prior vascular studies reveal the right great saphenous vein to be ablated. Incompetence is noted in the right lower extremity involving the accessory saphenous vein at the saphenofemoral junction, and the small saphenous vein. Additionally, the branch of the right great saphenous vein in the distal calf is also noted to be incompetent. These findings were noted on a venous study performed on September 14, 2017. A noninvasive lower extremity arterial study, performed in April 2017, reveals no evidence of arterial occlusive disease to ankle level bilaterally, and only mild, distal, smallvessel arterial occlusive disease bilaterally. Recent laboratory studies have been reviewed, with results as follows: White blood count 6.7, hemoglobin 12.0, hematocrit 38.6, platelets 292,000, sodium 141, potassium 3.8, chloride 104, BUN 18, creatinine 0.87, total protein 7.6, albumin 4.2, total bilirubin 0.30. The ulceration near the right medial malleolus is completely epithelialized and healed. Plan: The patient has been using 2 layers of compression to the right lower extremity, using graduated compression stockings of 10-15 mmHg compression. The ulceration near the right medial malleolus is completely healed and epithelialized. The patient is to be discharged. A prescription has been provided for graduated compression stockings of 20-30 mmHg compression, which the patient is to obtain, and wear for the long-term on a daily basis. Stockings will be donned in the morning, and will be worn until bedtime. Patient has been advised to elevate her lower extremities as much as possible. Leg elevation is to be to heart level, or higher. She is to continue sleeping on a flat mattress at night. Activity has been encouraged. Prolonged idle sitting has been discouraged. Weight loss has been recommended. The patient is to be discharged. She will follow-up henceforth as needed. Influenza vaccine was not administered today. The patient is not a smoker. Patient stands 5 feet 5 inches tall. She weighs 199 pounds. Her BMI is 33.1, which places her in a class I category. Weight loss has been recommended, and collaboration with the patient's primary care physician has been advised.
== END 2017-11-17 23:59 ==
LOC: WC 15:47
PROVIDERS: Family Provider Nurse Practitioner; PCP Nurse Practitioner; Visit Provider Surgery
DX: I87.2 Venous insufficiency (chronic) (peripheral) (principal); M51.36 Other intervertebral disc degeneration, lumbar region; I83.899 Varicose veins of unspecified lower extremity with other complications; I10 Essential (primary) hypertension; M19.90 Unspecified osteoarthritis, unspecified site; M32.9 Systemic lupus erythematosus, unspecified; I73.00 Raynaud's syndrome without gangrene
CPT/HCPCS: 99211; G0463

== ENCOUNTER 2018-01-02 08:31 | Emergency (ER) | payer MEDICARE, SELFPAY ==
[2018-01-02 08:32] VITALS: BP 160/82; PULSE 84; RESP 17; TEMP 37.3; O2SAT 100; BMI 34.8
--- NOTE | 2018-01-02 08:54 | ED.VISSUMM ---
- ER Visit Summary Date of Service: 01/02/18 Chief Complaint: [Back pain] History of Present Illness: The patient is a 62 F [presents the emergency department complaint of back pain that started 2 days ago. Patient states that she was working in her garden when she noticed some mild discomfort that progressively worsened over time. Patient states the pain feels like it is into her left hip. She denies any pain radiating down the leg. She denies weakness in the leg. She denies any change in bowel or bladder function. Patient does have a history of chronic back pain issues and had been in pain management until about a year ago. Patient states that she has had prior L4-5 lumbar fusion in 2010. Patient saw a chiropractor yesterday and had some sort of intramuscular injections in her back. Patient also had an adjustment yesterday. Patient denies any direct falls or trauma. She denies change in bowel or bladder function or weakness the extremities.] Physical Examination: [HEENT-PERRLA, EOMI. Cranial nerves II through XII grossly intact. TMs clear. Mucous membranes moist. No adenopathy. Cardiovascular-regular rate and rhythm without murmur or ectopy Lungs-clear to auscultation, chest wall stable without crepitus or subcu emphysema Abdomen-normoactive bowel sounds, soft, nontender, no rebound or rigidity, no peritoneal signs. Back exam-patient has some tenderness over the lumbar paraspinal musculature bilaterally. No tenderness over the thoracic or lumbar spine. Patient also has some tenderness over the left SI joint. Patient has negative straight leg raises. Deep tendon reflexes are plus 2 out of 4 bilaterally at the patella and Achilles. Patient has normal L5 extension bilaterally. Patient has normal sensation to light touch. Extremities-intact ?4, normal range of motion, normal pulses, atraumatic] Test Results: [None indicated] Emergency Department Course and Treatment: [Patient was medicated with Dilaudid and Zofran. I did review patient's MRI from February 142016 which showed mild degenerative disc disease at T11 L1 as well as L3-4 annular bulge with mild bilateral facet arthrosis. L4-5 status post anterior and posterior fusion since last exam grade 1 anterior listhesis stable. No postsurgical complications noted. L5-S1 bilateral facet arthrosis.] Treatment Plan: [Patient will be given a prescription for Flexeril and [place].] Disposition: [Discharged home in stable condition] Impression: [Acute exacerbation of chronic back pain] This note was generated with [employer] dictation software. It may contain incorrect words, spelling, and punctuation that were not noted in review of the chart prior to signing ED Disposition - Plan for ED Patient: Chief Complaint: Back Referrals: Nevin Boyer [Primary Care Provider] -
--- NOTE | 2018-01-02 08:57 | ED.DEP ---
ED Disposition - Plan for ED Patient: Chief Complaint: Back Instructions: ED Spasm Back No Trauma, ED Neck Back Pain General Prescriptions: Hydrocodone/Acetaminophen [Washta 5-325 Tablet] 1 ea PO 4X/DAY PRN PRN 5 Days #20 tab PRN Reason: Pain Cyclobenzaprine [Flexeril] 10 mg PO TID PRN #20 tab PRN Reason: Muscle Spasm Referrals: Nevin Boyer [Primary Care Provider] - Yadiel Coughlin MD [STAFF PHYSICIAN] - 3-5 Days Gucci Chaves DO [STAFF PHYSICIAN] - 3-5 Days
[2018-01-02] MEDS: Ondansetron 4 MG/2 ML Vial IM (08:58)
[2018-01-02] MEDS: HYDROmorphone 1 MG/ML Syringe IM (08:58)
== END 2018-01-02 09:26 | disposition home or self-care (01) ==
LOC: ED 08:55
PROVIDERS: Emergency Provider Emergency Medicine; Family Provider Nurse Practitioner; PCP Nurse Practitioner
DX: M54.5 Low back pain (principal); G89.29 Other chronic pain; M51.35 Other intervertebral disc degeneration, thoracolumbar region; M47.896 Other spondylosis, lumbar region; M47.897 Other spondylosis, lumbosacral region; Z98.1 Arthrodesis status
CPT/HCPCS: 96372; 99281; J2405

== ENCOUNTER → 2018-01-09 15:26 | Outpatient (CLI) | payer MEDICARE, SELFPAY | PROVIDERS: Family Provider Nurse Practitioner; PCP Nurse Practitioner; Visit Provider Nurse Practitioner | DX: Z12.31 Encounter for screening mammogram for malignant neoplasm of breast (principal) | CPT/HCPCS: 77063; 77067 ==

== ENCOUNTER → 2018-12-26 | Outpatient (CLI) | payer MEDICARE, OTHER, SELFPAY ==
--- NOTE | 2018-12-26 16:56 | RAD_ITS ---
HISTORY:pain in thoracic spine pain in thoracic spine EXAMINATION/TECHNIQUE: XR Spine Thoracic 3 Views: COMPARISON: None FINDINGS: VERTEBRAE: Preserved vertebral body height. No fracture. VERTEBRAL ALIGNMENT: No spondylolisthesis. There is no scoliosis. DISCS: Degenerative discogenic changes are noted. RAD/Thoracic Spine 3 Views IMPRESSION: Degenerative changes. No acute fracture or spondylolisthesis. at 1941 Reported and signed by: Marissa Henderson DO Electronically Signed: Marissa Henderson DO at 19:38 EDT Tel , Service support ,
== END | disposition home or self-care (01) ==
PROVIDERS: Family Provider Nurse Practitioner; PCP Nurse Practitioner; Referring Provider Nurse Practitioner Family; Visit Provider Nurse Practitioner Family
DX: M54.6 Pain in thoracic spine (principal)
CPT/HCPCS: 72072

== ENCOUNTER → 2019-04-11 11:39 | Outpatient (CLI) | payer MEDICARE, OTHER, SELFPAY ==
--- NOTE | 2019-04-11 11:51 | VDLE_ITS ---
Reason For Study: DVT Bilateral lower extremity RIGHT LEFT GSV is normal. GSV is normal. CFV is compressible, spontaneous, phasic, CFV is compressible, spontaneous, phasic, competent and demonstrates normal competent, and demonstrates normal augmentation. augmentation. FV is compressible, spontaneous, phasic, FV is compressible, spontaneous, phasic, competent and demonstrates normal competent and demonstrates normal augmentation. augmentation. POP V is compressible, spontaneous, phasic, POP V is compressible, spontaneous, phasic, competent and demonstrates normal competent and demonstrates normal augmentation. augmentation. T/P Trunk is compressible. T/P Trunk is compressible. PTV is compressible. PTV is compressible. RT PerV is compressible. LT PerV is compressible. Procedure Exam performed in department. A preliminary report was called and/or faxed to [facility]. Interpretation Summary Deep veins of the lower extremities are bilaterally patent and compressible segmentally. There is no evidence of deep vein thrombosis on either side. Valvular competence appears intact within the proximal deep venous systems bilaterally. The great saphenous veins appear bilaterally patent and compressible segmentally. Ordering Physician: Salbador Cornelius Referring Physician: Nevin Boyer Performed By: Charo Choi RVT
== END ==
PROVIDERS: Family Provider Nurse Practitioner; PCP Nurse Practitioner; Referring Provider Podiatrist; Visit Provider Podiatrist
DX: I82.4Z3 Acute embolism and thrombosis of unspecified deep veins of distal lower extremity, bilateral (principal)
CPT/HCPCS: 93970

== ENCOUNTER 2019-11-10 11:32 | Emergency (ER) | payer MEDICARE, OTHER, SELFPAY ==
[2019-11-10 11:34] VITALS: BP 201/101; PULSE 64; PULSE 70; RESP 17; RESP 18; TEMP 36.5; O2SAT 100; BMI 38.8
--- NOTE | 2019-11-10 12:03 | ED.VISSUMM ---
- ER Visit Summary Date of Service: 11/10/19 Chief Complaint: Back pain History of Present Illness: The patient is a 64 F who presents with back pain that is been getting worse over the past 3 days. Patient states she had a injection at pain management 5 days ago. Patient states the pain is in her left lower lumbar area and radiates down her left leg. Patient denies any bowel or bladder changes. Patient denies any saddle anesthesia. Patient denies any trauma or injury. Patient denies any paresthesias or weakness. Patient states her pain is worse with ambulation. Patient has been taking her home medication with minimal relief. Physical Examination: Vital signs are stable. Patient is afebrile. Patient is in no acute distress. Musculoskeletal exam reveals tenderness over the left lumbar paraspinal muscles and sciatic area. There is no midline tenderness. There is no bony crepitance or step-off. Range of motion was slightly limited in all motions of the lumbar spine secondary to pain. Straight leg raises were negative bilaterally. Strength is 5/5 bilaterally in the lower extremities. There are no sensory deficits noted. Pedal pulses are equal bilaterally. Capillary refill is less than 2 seconds in all digits. Test Results: CBC was obtained and was within normal limits. X-rays of the lumbar spine were obtained. There are degenerative changes but no acute fracture or spondylolisthesis. These were interpreted by the radiologist and myself. Emergency Department Course and Treatment: Patient was given an injection of morphine here. Patient was given an injection of Norflex. Patient was feeling somewhat better on reevaluation. Patient was given a prescription for a short course of Flexeril. Patient was instructed to use ice to the area. Patient was instructed to follow-up with her primary care physician and pain management physician as scheduled. Patient understood and was agreeable with the plan. All questions were answered. Disposition: Discharge home Impression: Sciatica This note was generated with [employer] dictation software. It may contain incorrect words, spelling, and punctuation that were not noted in review of the chart prior to signing ED Disposition - Plan for ED Patient: Disposition: Home or Assisted Living Diagnosis: Sciatica of left side Instructions: ED LUMBAR RADICULOPATHY Prescriptions: cycloBENZAPRine HCl [Flexeril] 10 mg PO QHS PRN PRN #7 tab PRN Reason: Muscle Spasm Prescription Printed Referrals: Ciesa,Nevin, [employer] [Primary Care Provider] - 3-5 Days
[2019-11-10] MEDS: Morphine 4 MG/ML Syringe IV (12:15)
[2019-11-10] MEDS: Orphenadrine 60 MG/2 ML Ampul IM (12:19)
[2019-11-10 12:27] LABS: Absolute Lymphocyte Count 2.02 X10^3/uL (0.83-4.51); Basophil# 0.06 X10^3/uL; Basophil% 0.8 % (0-1); Eosinophil# 0.15 X10^3/uL; Eosinophils% 1.9 % (0-5); Hematocrit 39.3 % (37-47); Hemoglobin 12.4 g/dL (12.0-15.0); Lymphocyte # 2.02 X10^3/ul (4.0); Lymphocyte % 25.8 % (19-41); Mean Corp Hgb Conc 31.6 g/dL (32-36); Mean Corpuscular Hgb 28.4 pg (27.0-32.0); Mean Corpuscular Volume 89.9 fL (81-99); Mean Platelet Vol. 10.1 fl (6.2-12.0); Monocyte# 0.59 X10^3/uL; Monocyte% 7.5 % (0-10); NRBC Flagged by Analyzer 0 % (0-5); Neutrophil # 4.98 X10^3/uL (2.7-7.7); Neutrophil % 63.7 % (47-70); Platelet Count 369 K/mm3 (150-450); RBC Distribution Width CV 14.8 % (11.6-14.6); RBC Distribution Width SD 48.8 fl (35.1-43.9); Red Blood Count 4.37 M/mm3 (4.2-5.4); White Blood Count 7.8 K/mm3 (4.4-11.0)
--- NOTE | 2019-11-10 12:33 | RAD_ITS ---
STUDY: X-RAY - LUMBAR SPINE REASON FOR EXAM: Female, 64 years old. Had recent injection at pain management, LBP radiating down left leg since TECHNIQUE: 3 view(s) of the lumbar spine were obtained. COMPARISON: 2015 FINDINGS: Stable pedicle screw fusion surgery at L4 and L5. Hardware intact and free of complications. Normal lumbar lordosis. There is no substantial scoliosis. There is a normal alignment of the vertebrae. There is multilevel endplate spondylosis of the lumbar vertebrae. There is multi-level degenerative disc disease with multi-level disc space narrowing. There is no demonstrated fracture. The soft tissue structures are unremarkable. RAD/Lumbar Spine 2 or 3 Views IMPRESSION: Stable degenerative and postsurgical changes in the lumbar spine, no acute findings or significant interval change Electronically Signed: Chaim Love MD at 12:54 EDT , Service support ,
[2019-11-10 13:14] VITALS: BP 174/88; PULSE 72; RESP 17; O2SAT 100
== END 2019-11-10 13:16 | disposition home or self-care (01) ==
PROVIDERS: Emergency Provider Emergency Medicine; PCP Nurse Practitioner
DX: M54.42 Lumbago with sciatica, left side (principal); E66.9 Obesity, unspecified; M19.90 Unspecified osteoarthritis, unspecified site; M32.9 Systemic lupus erythematosus, unspecified
CPT/HCPCS: 72100; 85025; 96372; 96374; 99283; A4216

== ENCOUNTER → 2019-11-13 16:57 | Outpatient (CLI) | payer MEDICARE, OTHER, SELFPAY ==
[2019-11-10 11:34] VITALS: BMI 38.8
[2019-11-13 17:51] LABS: BUN 21 mg/dL (7-18); Creatinine, Serum 0.74 mg/dL (0.55-1.02); EST Glomerular Filtration Rate 83 mL/min (>60); Est Glom Filt Rate - Afr Amer 100 mL/min (>60)
== END ==
PROVIDERS: PCP Nurse Practitioner; Referring Provider Nurse Practitioner Family; Visit Provider Nurse Practitioner Family
DX: Z01.812 Encounter for preprocedural laboratory examination (principal)
CPT/HCPCS: 36415; 82565; 84520

== ENCOUNTER → 2019-11-18 06:18 | Outpatient (CLI) | payer MEDICARE, OTHER, SELFPAY ==
[2019-11-10 11:34] VITALS: BMI 38.8
--- NOTE | 2019-11-18 06:39 | MRI_ITS ---
STUDY: MRI LUMBAR SPINE WITH AND WITHOUT CONTRAST REASON FOR EXAM: Female, 64 years old. Increased weakness post caudal injection 2 wks ago, increased lbp, left leg pain, post laminectomy syndrome TECHNIQUE: Standardized fat and water weighted pulse sequences were obtained in the sagittal and axial planes. 20 mL of IV Dotarem was administered for the contrast portion of the examination. COMPARISON: MRI lumbar spine without contrast 02/14/2017. FINDINGS: T9-T10: (Sagittal only). Normal endplates. Normal disc height, hydration and morphology. Normal central canal and bilateral intervertebral neural foramina. T10-T11: (Sagittal only). Normal T10 inferior endplate. Minimal anterior wedging of T11 superior endplate is old and unchanged. This accounts for the minimal increased disc space height. Normal disc hydration and morphology. Normal central canal and bilateral intervertebral neural foramina. T11-T12: (Sagittal only). Mild Modic type II degenerative vertebral marrow fatty changes are underneath the ventral half of the T11 inferior endplate. Normal T12 superior endplate. Pronounced anterior disc space height narrowing. Small posterior annular bulging disc. Normal central canal and bilateral intervertebral neural foramina. T12-L1: (Sagittal only). Normal T12 inferior endplate. Schmorl''s node in the anterior L1 superior endplate. Normal disc height with mild loss of disc hydration. No ventral extradural defect. Normal central canal and bilateral intervertebral neural foramina. Normal lumbar lordosis. There is no substantial scoliosis. Normal conus medullaris that terminates at the upper L1 vertebral body level. L1-2: Normal endplates. Normal disc height, hydration and morphology. Normal central canal and bilateral lateral recesses. Mild left degenerative facet arthropathy. Normal right facet joint. Normal bilateral intervertebral neural foramina. L2-3: Normal endplates. Normal disc height, hydration and morphology. Normal central canal and bilateral lateral recesses. Mild bilateral degenerative facet arthropathy. Normal bilateral intervertebral neural foramina. L3-4: Normal endplates. Mild disc space height narrowing is a new finding. Small posterior bulging disc is unchanged. Mild central canal stenosis with an AP canal diameter of 8 mm. Normal bilateral lateral recesses. Moderate asymmetric degenerative facet arthropathy. Normal bilateral intervertebral neural foramina. L4-5: Disc implant inside the disc space at. Pedicular screws and rods causing signal distortion artifacts. Prominent left medial synovial cyst measuring 1.1 x 0.5 cm causing compression deformity of the left dorsolateral aspect of the thecal sac. Otherwise normal central canal. Mild stenosis of the left lateral recesses. Normal right lateral recess. Signal distortion of the bilateral intervertebral neural foramina. Mild asymmetric degenerative anterolisthesis of L4 on L5. L5-S1: Normal endplates. Normal disc height with moderate loss of disc hydration. No ventral extradural defect. Normal central canal and bilateral lateral recesses. Mild asymmetric degenerative facet arthropathy. Normal bilateral intervertebral neural foramina. Normal visualized sacral ala. Normal visualized paraspinous soft tissue structures. There is enhancement in the wall of the prominent left medial synovial cyst at the L4-L5 disc level suggesting degenerative inflammatory cyst. No other enhancing lesions intradurally and extradurally. MRI/Spine Lumbar W/WO Contrast IMPRESSION: 1. Enhancing wall of new degenerative inflammatory left medial synovial cyst at L4-L5 disc level measuring 1.1 x 0.5 cm. This is causing compression deformity of the left dorsolateral aspect of the thecal sac causing and mild left lateral recess stenosis. 2. No MRI evidence of lumbar extruded disc fragment, recurrent or new. 3. Mild L3-L4 disc space height narrowing is a new finding. Mild central canal stenosis at L3-L4 disc level with an AP canal diameter of 8 mm, small posterior bulging disc and moderate asymmetric L3-L4 degenerative facet arthropathy are unchanged. 4. No other additional findings or changes since 02/14/2017. Electronically Signed: Alejandro Torres MD at 15:53 EDT , Service support ,
== END ==
PROVIDERS: PCP Nurse Practitioner; Referring Provider Nurse Practitioner Family; Visit Provider Nurse Practitioner Family
DX: M51.17 Intervertebral disc disorders with radiculopathy, lumbosacral region (principal); M47.27 Other spondylosis with radiculopathy, lumbosacral region; M96.1 Postlaminectomy syndrome, not elsewhere classified
CPT/HCPCS: 72158; A9575

== ENCOUNTER → 2020-08-12 13:42 | Outpatient (CLI) | payer MEDICARE, SELFPAY ==
--- NOTE | 2020-08-12 13:44 | VDLE_ITS ---
Reason For Study: pain RIGHT GSV is normal. CFV is compressible, spontaneous, phasic, competent and demonstrates normal augmentation. FV is compressible, spontaneous, phasic, competent and demonstrates normal augmentation. POP V is compressible, spontaneous, phasic, competent and demonstrates normal augmentation. T/P Trunk is compressible. PTV is compressible. RT PerV is compressible. Procedure This is a venous duplex using B-mode, color flow and spectral Doppler. Exam performed in department. The exam was abbreviated due to the COVID 19 protocol. The exam was diagnostic. A preliminary report was called and/or faxed to Nevin Boyer [facility]. VL/Venous Duplex US, Unilateral Interpretation Summary Deep veins of the right lower extremity are patent and compressible segmentally . There is no evidence of right lower extremity deep vein thrombosis. Valvular competence ahmet ears intact within the proximal deep venous system on the right . The right great saphenous vein a ppears patent and compressible segmentally. Ordering Physician: Nevin Boyer Performed By: Luther Covarrubias RVT
== END ==
PROVIDERS: PCP Nurse Practitioner; Referring Provider Nurse Practitioner; Visit Provider Nurse Practitioner
DX: M79.661 Pain in right lower leg (principal)
CPT/HCPCS: 93971

== ENCOUNTER → 2020-08-19 09:15 | Outpatient (CLI) | payer MEDICARE, SELFPAY ==
--- NOTE | 2020-08-19 09:28 | BI_ITS ---
MAMMOGRAPHY - BILATERAL SCREENING REASON FOR EXAM: Female, 65 years old. Routine annual screening examination. PERTINENT HISTORY: Non-contributory. TECHNIQUE: Digital bilateral breast khushbu (3D mammographic acquisition) in the CC and MLO projections. 2-D mediolateral oblique (MLO) and craniocaudad (CC) views of both breasts were obtained. CAD: Full Field Digital Mammography with Computer Added Detection was performed. COMPARISON: Comparison is made with prior study 01/09/2018 and 12/13/2016. FINDINGS: Breast Composition: There are scattered areas of fibroglandular density. There are no dominant masses or suspicious calcifications. No other significant abnormalities are identified. There has been no significant change since the prior study. BI/SCRN MAMM (CAD)W/KHUSHBU BILAT IMPRESSION: Stable bilateral screening mammogram. Yearly follow-up mammogram recommended. (A) ASSESSMENT CATEGORY: BIRADS Category 1: Negative. A letter regarding these results will be sent to the patient by the facility within 30 days. Approximately 10% of breast cancers are not detected by mammography. A normal mammogram should not delay biopsy of a clinically suspicious abnormality. [id number] Electronically Signed: Larry Sethi MD at 11:46 EDT , Service support ,
--- NOTE | 2020-08-19 09:28 | BD_ITS ---
STUDY: DUAL ENERGY X-RAY ABSORPTIOMETRY / DXA REASON FOR EXAM: Female, 65 years old. X780 TECHNIQUE: Bone Mineral Density (BMD) measurements of lumbar spine and bilateral hips were obtained. COMPARISON: Comparison is made with prior study dated 09/22/2015. FINDINGS: Lumbar Spine (L1-L4): g/cm2 (1.250) / T-score (0.7) / Z-score (2.3) Findings are suggestive of normal bone density with a low fracture risk. Left Femur Total: g/cm2 (0.936) / T-score (-0.6) / Z-score (0.7) Left Femoral Neck: g/cm2 (0.854) / T-score (-1.3) / Z-score (0.2) Right Femur Total: g/cm2 (0.927) / T-score (-0.6) / Z-score (0.7) Right Femoral Neck: g/cm2 (0.827) / T-score (-1.5) / Z-score (0.1) The T-Scores on the most recent prior examination were: Lumbar Spine (L1-L4): There has been no change of bone density since the previous examination. Left Femur Total: which represents a worsening of 5.1%. Right Femur Total: which represents a worsening of 5.8%. BD/Dexa Bone Density Study IMPRESSION: The patient is considered osteopenic as outlined below according to World Reggie Organization (WHO) criteria with a low fracture risk. There has been worsening of bone density since the previous examination. Reference Information: The T-score is the number of standard deviations above or below the standard which is normal for young adults at their peak bone mineral density. The World Health Organization (WHO) interprets the T-scores as follows: Above -1 Normal bone density Between -1 and -2.5 Osteopenia Equal to / or below -2.5 Osteoporosis As a practical clinical guideline, osteopenia may be graded as follows: Mild -1 through -1.5 Moderate -1.6 through -2.0 Severe -2.1 through -2.4 The Z-score is the number of standard deviations above or below age-matched controls. A Z-score of less than -1.5 would be considered abnormal. References: 1. NIH Osteoporosis and Related Bone Diseases www osteo.org 2. International Society for Clinical Densitometry www iscd.org 3. National Osteoporosis Foundation www nof.org Electronically Signed: Larry Sethi MD at 15:38 EDT , Service support ,
== END ==
PROVIDERS: PCP Nurse Practitioner; Referring Provider Nurse Practitioner; Visit Provider Nurse Practitioner
DX: Z12.31 Encounter for screening mammogram for malignant neoplasm of breast (principal); Z78.0 Asymptomatic menopausal state
CPT/HCPCS: 77063; 77067; 77080

== ENCOUNTER 2020-09-07 17:23 | Emergency (ER) | payer MEDICARE, SELFPAY ==
[2020-09-07 17:24] VITALS: BP 199/95; PULSE 90; RESP 18; TEMP 35.3; O2SAT 100; BMI 42.2
--- NOTE | 2020-09-07 17:35 | US_ITS ---
STUDY: VENOUS DOPPLER ULTRASOUND - RIGHT LOWER EXTREMITY REASON FOR EXAM: Female, 65 years old. RT MEDIAL CALF REDNESS AND SWELLING TECHNIQUE: Ultrasound evaluation of the deep vein system to include mckeon-scale imaging and compression was performed. Mckeon-scale imaging and Doppler sonographic evaluation, including duplex spectral analysis and qualitative color flow sonography, was performed. COMPARISON: None. FINDINGS: Common Femoral Vein: Normal compression, spontaneity and augmentation. Normal color Doppler. Common Femoral Vein/Greater Saphenous Junction: Normal compression. Femoral Proximal: Normal compression. Femoral Middle: Normal compression, spontaneity and augmentation. Normal color Doppler. Femoral Distal: Normal compression. Popliteal Vein: Normal compression, spontaneity and augmentation. Normal color Doppler. Posterior Tibial Vein: Normal compression. Peroneal Vein: Normal compression. There is a complex collection along the medial aspect of the calf measuring 8.9 x 5.3 x 2 cm with subcutaneous edema. US/Venous Duplex Imag/Limited/Uni IMPRESSION: No deep venous thrombosis of the lower extremity. There is a complex collection within the medial calf with subcutaneous edema. Electronically Signed: Kavon Corcoran DO at 18:47 EDT Tel [phone], Service support ,
--- NOTE | 2020-09-07 18:05 | ED.DCSUM_ITS ---
History of Present Illness Chief Complaint: Lower Extremity Injury Informant: Patient Onset: Days Context: Sudden Onset Timing: Continuous Quality: Pain Location: Right calf Current Severity: Mild Maximum Severity: Moderate Worsened by: Movement and palpation Relieved by: Nothing Associated Symptoms: No complaint of chest pain, shortness of breath or prior history of VTE Narrative: Patient is six 5-year-old woman who states she had her right knee injected with cortisone. She presents because of pain and swelling of her right calf for the past several days. She denies chest pain or shortness of breath. Denies history of VTE. She denies recent immobilization. She denies recent surgery. She denies any new medication. She denies fever or chills. She denies night sweats. Denies weight gain or weight loss. Prior similar symptoms: No Recent Illness/Hospitalization: No - Past Medical History (1) Chronic venous insufficiency Status: Chronic (2) Degenerative disc disease, lumbar Status: Chronic (3) History of superficial phlebitis Status: Chronic (4) Hypertension Status: Chronic (5) Lipodermatosclerosis Status: Chronic (6) Lupus (systemic lupus erythematosus) Status: Chronic (7) Osteoarthritis Status: Chronic (8) Raynauds disease Status: Chronic (9) Venous ulcer of ankle Status: Chronic Past Medical History - Allergies and Home Meds Allergies/Adverse Reactions: Allergies hydroxychloroquine [From Plaquenil] Allergy (Verified 09/07/20 17:26) Rash lisinopril Adverse Reaction (Verified 09/07/20 17:26) COUGHING Primary Care Physician: Nevin Boyer OPERATION SHIFT SUPERVISOR, OPERATION SHIFT SUPERVISOR-C [Primary Care Provider] - Prior records reviewed: Yes Surgical History: - - The patient is undergone endovenous laser ablation in the right lower extremity, though the procedure was performed in the remote past, and specifics regarding her procedure are not available. She has a history of lumbar fusion in 2010. Umbilical hernia repair has also been performed in the past. Patient underwent laparoscopic cholecystectomy only 1 week ago, from which she is recovering uneventfully. The patient is a Ab0. Lives: With Family Smoking Status: Never smoker Alcohol: None Drugs: None - Family History Paternal Family History: Reports: - - Patient's father at the age of 80 with a history of diabetes mellitus, prostate cancer, and hypertension. The patient's mother at the age of 78 with a history of obesity, hypertension, and cardiac valve disease. Review of Systems General: Denies: Chills, Fever, Malaise, Sweats Eyes: Denies: Visual changes - bilaterally, Blurred Vision - bilaterally ENT: Denies: Bilateral ear pain, Rhinorrhea, Sore throat Cardiovascular: Denies: Chest pain, Palpitations Respiratory: Denies: Dyspnea, Cough, Dyspnea on exertion Gastrointestinal: Denies: Abdominal pain, Nausea, Vomiting, Diarrhea Genitourinary: Denies: Dysuria, Hematuria, Frequency Musculoskeletal: Reports: Swelling, Extremity Pain. Denies: Myalgias, Arthralgias, Neck pain, Back pain Skin: Reports: Rash - Due to psoriasis. Denies: Wounds Neurological: Denies: Headache, Weakness Psych: Denies: Depression, Anxiety Endocrine: Denies: Polyuria, Polydipsia Physical Exam Vital Signs/Narrative: Vital Signs Temp Pulse Resp BP Pulse Ox 09/07/20 17:24 95.6 F L 90 18 199/95 H 100 Inital Vital Signs reviewed: Yes General: Well nourished, Well developed, Obese, No Acute Distress Head: Normocephalic, Atraumatic Eyes: Perrl, EOMI. Negative for: Pale conjunctiva, Scleral icterus ENT: Moist mucous membranes, No rhinorrhea, TM's clear Cardiovascular: Regular rate, Regular rhythm, No murmurs, Normal S1, Normal S2 Respiratory: No distress, CTA bilaterally, Chest nontender Extremities: Tenderness, Edema, Calf Tenderness. Negative for: Nontender, No edema Skin: Normal color, Rash - Due to psoriasis. Negative for: No rash Neurological: Alert, Oriented x3, Cranial nerves II-XII grossly intact, Normal Strength, Normal Sensation Psychological: Normal affect Diagnostic/Tx/Re-eval - EKG Initial EKG Interpretation: Sinus Rhythm - Rhythm with a ventricular to 76 and premature ventricular beat noted. ND interval 174 ms. QRS duration 96 ms. QT duration 4 to 28 ms. [place] is normal. - Medical Decision Making Wells score is 2. Will obtain venous duplex study to evaluate for DVT. Informed me that patient's blood pressure is greater than 200. Patient informed the nurse she does not have history of hypertension and is on no hypertensive meds. She informed me that she had does not have hypertension; however, per old records there is documentation of hypertension. She states she has high blood pressure readings when she is about to have a procedure performed i.e. surgery. She states when she last saw her physician her pressure was normal. Will obtain blood work and EKG to assess for endorgan injury. Since there is a complex fluid collection medial right calf the area was prepped draped for needle aspirate. Ultrasound was used to identify fluid collection. The fluid was bloody and turbid. If this returns with concern for infection incision would be made to drain this infected fluid. Repeat blood pressure is elevated. Patient states her blood pressure is normally not elevated. Since there is no evidence of endorgan injury she was started on antihypertensive. She received a dose of clonidine and hydrochlorothiazide and given a prescription for hydrochlorothiazide. She was instructed to contact her provider Nevin lloyd for repeat blood pressure in 1 week. Procedures Procedure(s): There is a complex fluid collection noted on venous duplex study. Ultrasound was performed there is a large fluid collection. Needle aspirate was undertaken and the fluid is turbid and bloody. Fluid was sent for cell count, Gram stain and culture. This appears infected will discuss need for I&D with patient. Gram stain reveals no organisms and rare WBC. An additional 30 cc of bloody fluid was aspirated from the fluid collection. ED Disposition - Plan for ED Patient: Disposition: Home or Assisted Living Diagnosis: Accelerated hypertension, Hematoma of left lower leg Instructions: ED Hypertension, New (Begin Treatment), ED Contusion, Lower Extremity Prescriptions: Hydrochlorothiazide [Hctz] 12.5 mg PO DAILY #30 tab Transmission Status: Pending to [facility]/pharmacy #[id number] Referrals: Nevin Boyer OPERATION SHIFT SUPERVISOR, OPERATION SHIFT SUPERVISOR-C [Primary Care Provider] - 1 Week
[2020-09-07 18:33] VITALS: BP 216/85; PULSE 75; RESP 18; O2SAT 100
[2020-09-07 20:02] VITALS: BP 205/91; PULSE 80; RESP 14; TEMP 36.6; O2SAT 98
--- NOTE | 2020-09-07 20:17 | EKG12_ITS ---
Test Reason : HTN Blood Pressure : / mmHG Vent. Rate : 076 BPM Atrial Rate : 076 BPM P-R Int : 174 ms QRS Dur : 096 ms QT Int : 428 ms P-R-T Axes : 047 -01 008 degrees QTc Int : 481 ms Sinus rhythm with occasional Premature ventricular complexes Otherwise normal ECG Confirmed by HALI FONTANEZ, PETAR ([id number]), script editor MORIS CHERRY ([id number]) on 09/10/2020 8:05:58 AM Referred By: CARO Confirmed By:ROMANA LAL MD
[2020-09-07 20:25] LABS: Bacteria 0 SEEN /hpf (None Seen); Mucous, Urine 0 SEEN /hpf (<or=2+); Red Blood Cells-Urine 0 SEEN /hpf (0-5); Squamous Epithelial Cells - UA 0 SEEN /hpf (5-10); White Blood Cells 0 SEEN /hpf (0-5)
[2020-09-07 20:26] LABS: Color, Urine Yellow (Yellow); Glucose, Dipstick Normal (Normal); Ketone-Dipstick 5 mg/dl (Negative); Leukocyte Esterase-Dipstick 25 /ul (Negative); Nitrite-Dipstick Negative (Negative); Occult Blood-Urine Negative /ul (Negative); Protein-Dipstick Negative (Negative); Urine Bilirubin Dipstick Negative (Negative); Urine Clarity Clear (Clear); Urine Urobilinogen Normal (Normal); Urine pH 6.5 (5.0 - 8.0)
[2020-09-07 21:06] LABS: Anion Gap 6 (5-15); BUN 13 mg/dL (7-18); BUN/Creat Ratio 16.2 RATIO (10-20); Calcium,Total 9.3 mg/dL (8.5-10.1); Chloride 105 mmol/L (98-107); EST Glomerular Filtration Rate 76 mL/min (>60); Est Glom Filt Rate - Afr Amer 92 mL/min (>60); Estimated Creatinine Clearance 58.93 ml/min; Glucose 92 mg/dL (74-106); Potassium 3.8 mmol/L (3.5-5.1); Sodium Level 142 mmol/L (136-145)
[2020-09-07 22:43] VITALS: BP 213/97; PULSE 76; RESP 18; O2SAT 96
[2020-09-07] MEDS: cloNIDine HCl 0.1 MG Tablet PO (22:58)
[2020-09-07 23:02] VITALS: BP 217/97; PULSE 73; RESP 16; O2SAT 100
--- NOTE | 2020-09-07 23:02 | ED.RN ---
pt refused to wait for hctz 25mg po. pt requested to be discharged home.
== END 2020-09-07 23:03 | disposition home or self-care (01) ==
PROVIDERS: Emergency Provider Emergency Medicine; PCP Nurse Practitioner
DX: S80.12XA Contusion of left lower leg, initial encounter (principal); M79.89 Other specified soft tissue disorders; X58.XXXA Exposure to other specified factors, initial encounter; Y93.9 Activity, unspecified; Y92.9 Unspecified place or not applicable; I10 Essential (primary) hypertension; M19.90 Unspecified osteoarthritis, unspecified site; M32.9 Systemic lupus erythematosus, unspecified; M51.36 Other intervertebral disc degeneration, lumbar region; L40.9 Psoriasis, unspecified; E66.9 Obesity, unspecified; Z68.41 Body mass index [BMI] 40.0-44.9, adult; I83.203 Varicose veins of unspecified lower extremity with both ulcer of ankle and inflammation; L97.309 Non-pressure chronic ulcer of unspecified ankle with unspecified severity
CPT/HCPCS: 10160; 80048; 81001; 87070; 87075; 87205; 93005; 93971; 99283

== ENCOUNTER → 2020-09-24 14:26 | Outpatient (CLI) | payer MEDICARE, SELFPAY ==
[2020-09-07 17:24] VITALS: BMI 42.2
[2020-09-24 17:24] LABS: Absolute Lymphocyte Count 1.46 X10^3/uL (0.83-4.51); Absolute Neutrophil Count 3.8 X10^3/uL (2.0-7.7); Basophil# 0.05 X10^3/uL; Basophil% 0.8 % (0-1); Eosinophils% 3.4 % (0-5); Hematocrit 38.3 % (37-47); Hemoglobin 11.6 g/dL (12.0-15.0); Lymphocyte # 1.46 X10^3/ul (0.83-4.51); Lymphocyte % 24.5 % (19-41); Mean Corp Hgb Conc 30.3 g/dL (32-36); Mean Corpuscular Volume 82.5 fL (81-99); Mean Platelet Vol. 12.1 fl (6.2-12.0); Monocyte# 0.41 X10^3/uL; Monocyte% 6.9 % (0-10); NRBC Flagged by Analyzer 0 % (0-5); Neutrophil # 3.82 X10^3/uL (2.7-7.7); Neutrophil % 64.1 % (47-70); Platelet Count 411 K/mm3 (150-450); RBC Distribution Width CV 15.8 % (11.6-14.6); RBC Distribution Width SD 47.2 fl (35.1-43.9); Red Blood Count 4.64 M/mm3 (4.2-5.4)
[2020-09-24 17:42] LABS: Color, Urine Yellow (Yellow); Glucose, Dipstick Normal (Normal); Ketone-Dipstick 5 mg/dl (Negative); Leukocyte Esterase-Dipstick 100 /ul (Negative); Nitrite-Dipstick Negative (Negative); Occult Blood-Urine Negative /ul (Negative); Protein-Dipstick Negative (Negative); Specific Gravity, Urine 1.015 (1.002-1.030); Urine Bilirubin Dipstick Negative (Negative); Urine Clarity Clear (Clear); Urine Urobilinogen Normal (Normal)
[2020-09-24 17:43] LABS: Erythrocyte Sedimentation Rate 14 mm/hr (0-30)
[2020-09-24 17:47] LABS: ALB/GLOB Ratio 1.2 RATIO (0.9-2.4); AST(SGOT) 12 U/L (15-37); Alanine Aminotransfer ALT/SGPT 20 U/L (13-56); Albumin, Serum 4.1 g/dL (3.2-5.0); Alkaline Phosphatase 81 U/L (45-117); Anion Gap 9 (5-15); BUN 22 mg/dL (7-18); BUN/Creat Ratio 24.6 RATIO (10-20); Calcium,Total 9.2 mg/dL (8.5-10.1); Chloride 101 mmol/L (98-107); Creatinine, Serum 0.89 mg/dL (0.55-1.02); EST Glomerular Filtration Rate 67 mL/min (>60); Est Glom Filt Rate - Afr Amer 81 mL/min (>60); Globulin 3.5 g/dL (2.2-4.2); Glucose 88 mg/dL (74-106); Potassium 3.6 mmol/L (3.5-5.1); Protein, Total 7.6 g/dL (6.4-8.2); Sodium Level 139 mmol/L (136-145)
[2020-09-27 09:14] LABS: Hepatitis B Surface Antibody Non-Reactive; Hepatitis B Surface Antigen Non-Reactive (Nonreactive); Hepatitis C Antibody Non-Reactive (Nonreactive)
== END ==
PROVIDERS: PCP Nurse Practitioner; Referring Provider Internal Medicine Rheumatology; Visit Provider Internal Medicine Rheumatology
DX: M06.4 Inflammatory polyarthropathy (principal); R76.8 Other specified abnormal immunological findings in serum; M79.7 Fibromyalgia; M18.0 Bilateral primary osteoarthritis of first carpometacarpal joints; M19.041 Primary osteoarthritis, right hand; M21.41 Flat foot [pes planus] (acquired), right foot; I10 Essential (primary) hypertension; I87.2 Venous insufficiency (chronic) (peripheral); F32.9 Major depressive disorder, single episode, unspecified
CPT/HCPCS: 36415; 80053; 81002; 82570; 84156; 85025; 85652; 86140; 86706; 86803; 87340

== ENCOUNTER 2022-09-02 14:47 | Emergency (ER) | payer MEDICARE, SELFPAY ==
[2022-09-02 14:48] VITALS: BP 171/93; PULSE 87; RESP 18; TEMP 36.6; O2SAT 99; BMI 37.5
--- NOTE | 2022-09-02 15:04 | EKG12_ITS ---
Test Reason : EDEMA Blood Pressure : / mmHG Vent. Rate : 085 BPM Atrial Rate : 085 BPM P-R Int : 158 ms QRS Dur : 088 ms QT Int : 402 ms P-R-T Axes : 021 -13 005 degrees QTc Int : 478 ms Normal sinus rhythm Minimal voltage criteria for LVH, may be normal variant ( R in aVL ) Borderline ECG Confirmed by TIERRA COWART ([id number]), deputy editor in chief MORIS CHERRY ([id number]) on 09/05/2022 7:27:24 AM Referred By: UG Confirmed By:TIERRA COWART
--- NOTE | 2022-09-02 15:07 | ED.VIS.LOWEX ---
HPI History of Present Illness Chief Complaint: Lower Extremity Injury Detail of Chief Complaint: Swollen painful left lower extremity Informant: patient Occured/Mechanism Comment: Atraumatic Onset/Context/Timing Context: Sudden Onset Timing: Continuous Quality of Pain: Dull Location: Calf Current Severity: Mild Maximum Severity: Moderate Worsened by: Palpation Relieved by: Now Associated Symptoms Associated Symptoms: Negative for Parasthesia, Weakness or Loss of Funtion Narrative Narrative: Patient is a 67-year-old woman with history of rheumatoid arthritis, hypertension, chronic venous stasis who presents with atraumatic left lower extremity pain and swelling. She also complains of dyspnea with exertion over the past 12 to 24 hours. She denies chest discomfort. She denies discomfort with breathing. There is family history of PE. She has never had a PE or DVT. She is had no recent surgery, travel, immobilization, hospitalization etc. Patient denies any upper respiratory tract infectious symptoms. Patient does have mild congestion due to allergies. Patient denies headache, visual, ocular auditory symptoms. Patient denies orthopnea, PND or dyspnea at rest. Patient has no known coronary disease. She states she is never smoked. There is no history of coronary disease at a young age. Patient denies prior symptoms. Prior similar symptoms: No Recent Illness/Hospitalization: No PFSH [facility] Medical History Anemia Fall Fusion of lumbar spine Home Medications cyclobenzaprine 10 mg tablet 10 mg PO QHS PRN PRN Muscle Spasm #7 tabs 11/10/19 [Rx Last Taken Unknown] hydrochlorothiazide 25 mg tablet 12.5 mg PO DAILY #30 TABLETS 09/07/20 [Rx Last Taken Unknown] amlodipine 5 mg tablet 5 mg PO DAILY 01/13/22 [History Last Taken Unknown] docusate sodium 100 mg capsule 100 mg PO DAILY 01/13/22 [History Last Taken Unknown] polyethylene glycol 3350 17 gram/dose oral powder 4 g PO DAILY 01/13/22 [History Last Taken Unknown] folic acid 1 mg tablet 2 mg PO DAILY 01/16/22 [History Last Taken Unknown] methotrexate sodium 2.5 mg tablet 20 mg PO QWEEK 01/16/22 [History Last Taken Unknown] prednisone 5 mg tablet 5 mg PO DAILY PRN 01/16/22 [History Last Taken Unknown] Allergy/AdvReac Type Severity Reaction Status Date / Time hydroxychloroquine Allergy Rash Verified 09/02/22 14:51 [From Plaquenil] lisinopril AdvReac COUGHING Verified 09/02/22 14:51 Family History Grandmother Arthritis Father Cancer Diabetes Glaucoma Heart disease Hypertension Prostate cancer CVA (cerebral vascular accident) Mother Colon cancer Diabetes Heart disease Hypertension Arthritis Sister Diabetes Hypertension Brother Diabetes Heart disease Hypertension Prostate cancer Grandfather Heart disease Son Seizures Surgical History H/O section History of herniorrhaphy Hx of cholecystectomy Hx of colonoscopy Hx of knee surgery Hx of vein stripping Social History household members: none number of children: 3 current occupational status: retired current occupational exposures/hazards: No history of recent travel: No Smoking Status: Never smoker alcohol intake: never substance use type: does not use caffeine: Yes Type: coffee Number of servings: 1 ROS ROS ED Constitutional Constitutional ED: Denies chills, fever(s), subjective, sweats or weight loss Eyes Eyes: Denies blurry vision, change in vision or diplopia ENT ENT ED: Reports rhinorrhea; Denies ear pain or sore throat Cardiovascular Cardiovascular: Denies chest pain, orthopnea, palpitations, paroxysmal nocturnal dyspnea or racing heartbeat Respiratory/Chest Respiratory/Chest: Reports dyspnea on exertion; Denies cough, dyspnea, orthopnea, paroxysmal nocturnal dyspnea or sputum Gastrointestinal Gastrointestinal: Reports other Details: Denies change in caliber, consistency or color of stool. ; Denies abdominal pain, constipation, diarrhea, nausea or vomiting Genitourinary Genitourinary ED: Denies dysuria, hematuria or urinary frequency Musculoskeletal Musculoskeletal: Denies arthralgias, back pain, myalgias or neck pain Integumentary Denies Abrasions Neurologic Neurologic: Denies paresthesias or weakness Endocrine Endocrinology: Denies polydipsia, polyphagia or polyuria Hematologic/Lymphatic Hematologic/Lymphatic: Denies easy bleeding or easy bruising EXAM Physical Exam Const Vital Signs: 09/02/22 14:48 Temperature 97.9 F Temperature Source Temporal Pulse Rate 87 Respiratory Rate 18 Blood Pressure 171/93 H Blood Pressure Mean 119 Pulse Ox 99 Oxygen Delivery Method Room Air Positive well nourished, well developed and obese General Appearance ED: well developed and NAD Nutritional Appearance: obese HEENT Reports moist mucous membranes HEENT Narrative: Ears normal. Nares patent. Posterior pharynx is normal. normocephalic and atraumatic Eyes Eyes Narrative: Pupils equal round reactive to light. Extract muscle intact. Sclera is anicteric. Conjunctive is pink. Neck full ROM and supple Neck Narrative: Trachea is midline. There is no inspiratory stridor. There is no carotid bruits noted. Chest Wall inspection of chest normal and palpation of chest normal Resp normal respiratory effort, no retractions and clear to auscultation bilaterally Cardio regular rate, regular rhythm, S1 normal heart sound, S2 normal heart sound and no murmurs GI non-tender, non-distended and no masses Back/Spine no CVA tenderness Extremity full ROM; Negative for normal to inspection Extremity Narrative: The left lower extremity is significantly swollen in comparison to the right. There is pain to palpation in the gastrocnemius region and popliteal region. There is no leg vein distention. There is no palpable cords. There is no popliteal lymphadenopathy. There is no evidence of cellulitis. DP and PT pulse are palpable. Neuro oriented x3, CN's II-XII intact bilaterally, moves all extremities and no sensory deficits noted Sensorium / Orientation: alert Psych mental status grossly normal Skin no wounds Lesions: no lesions Rashes: no rashes MDM MDM MDM Narrative Medical decision making narrative: Wells score for DVT is 2. Concern patient does have a blood clot. Since vascular service is not available at this hour. Will obtain a D-dimer. If D-dimer is elevated will treat with anticoagulant. Will obtain BMP since she has not had blood work since 2020 to assure there is no renal dysfunction since she does have history of hypertension. CBC was obtained to assess white count and anemia since she also complains of [place] exertion. Because she complains of dyspnea on exertion and denies pleuritic chest pain need to consider her dyspnea to be due to possible cardiac etiology versus PE. History & Record Review Additional record(s) reviewed:: Prior inpatient record (Inpatient record for cholecystectomy.), Prior outpatient record (Office visit for vascular disease when she saw Dr. Winston.) and Prior ED visit (For accelerated hypertension, sinus issues/allergies as well as back pain.) Lab Data Attestation: I reviewed the patient's lab results. Lab results narrative: She is remarkable for mild anemia. She is a gram lower than her baseline. D-dimer is elevated. Patient received dose of Eliquis in the department. Outpatient venous duplex study was ordered. She was given additional dose of Eliquis to take tomorrow morning. Troponin is normal. BUN and creatinine are normal which would rule out against acute GI blood loss. Labs: Laboratory Results - last 24 hr 09/02/22 09/02/22 09/02/22 15:10 15:10 15:10 WBC 4.9 RBC 3.48 L Hgb 10.5 L Hct 33.0 L MCV 94.8 MCH 30.2 MCHC 31.8 L RDW Std Deviation 66.8 H RDW Coeff of Nat 19.3 H Plt Count 352 MPV 9.4 Immature Gran % (Auto) 0.200 Neut % (Auto) 42.5 L Lymph % (Auto) 43.0 H Rhea % (Auto) 10.1 H Eos % (Auto) 3.2 Baso % (Auto) 1.0 Absolute Neuts (auto) 2.1 Absolute Lymphs (auto) 2.12 Nucleated RBC % 0 D-Dimer Quant (PE/DVT) 0.53 H* Sodium 139 Potassium 3.7 Chloride 108 H Carbon Dioxide 27.0 Anion Gap 4 L BUN 18 Creatinine 0.80 Estim Creat Clear Calc 57.31 Est GFR (MDRD) Af Amer 91 Est GFR (MDRD) Non-Af 75 BUN/Creatinine Ratio 22.5 H Glucose 99 Calcium 9.1 Troponin I High Sens 10 Radiography Chest X-Ray - ED: 2 View and Read by ED Physician (Dependently reviewed interpreted by me at 1531. Cardiac silhouette and size unremarkable. Perihilar region unremarkable. Lung parenchyma is unremarkable. Inspiratory volume is slightly diminished. Osseous structures are remarkable for prior fusion of the dorsal spine. Hardware is noted.) Treatment and Re-Evaluation Narrative: Administration of anticoagulant department and outpatient venous duplex study of the left lower extremity. Discharge Plan Triage Chief Complaint: Lower Extremity Injury ED Provider: Konstantin Napier Dx/Rx/DC Orders Clinical Impression: Pain and swelling of left lower leg, Raynauds disease, History of superficial phlebitis, Hypertension, Lupus (systemic lupus erythematosus), Elevated d-dimer, HERRMANN (dyspnea on exertion) Instructions: ED Peripheral Edema, Unilateral Prescriptions: No Action docusate sodium 100 mg capsule 100 mg PO DAILY polyethylene glycol 3350 17 gram/dose powder 4 g PO DAILY amlodipine 5 mg tablet 5 mg PO DAILY folic acid 1 mg tablet 2 mg PO DAILY methotrexate sodium 2.5 mg tablet 20 mg PO QWEEK Label Comments: takes 4 tabs in AM, then 4 tabs in PM prednisone 5 mg tablet 5 mg PO DAILY PRN cyclobenzaprine 10 MG tablet 10 mg PO QHS PRN PRN (Reason: Muscle Spasm) Qty: 7 0RF hydrochlorothiazide 25 MG tablet 12.5 mg PO DAILY Qty: 30 0RF Primary Care Provider: Gucci Lazaro Referrals: Gucci Lazaro DO [Primary Care Provider] - 3-5 Days Activity Restrictions/Additional Instructions: You will need to contact the vascular lab for study to be performed tomorrow. Take Eliquis in the morning. Disposition Disposition: Home, Self Care
[2022-09-02 15:20] LABS: Absolute Lymphocyte Count 2.12 X10^3/uL (0.83-4.51); Absolute Neutrophil Count 2.1 X10^3/uL (2.0-7.7); Basophil# 0.05 X10^3/uL; Eosinophil# 0.16 X10^3/uL; Eosinophils% 3.2 % (0-5); Hemoglobin 10.5 g/dL (12.0-15.0); Lymphocyte # 2.12 X10^3/ul (0.83-4.51); Mean Corp Hgb Conc 31.8 g/dL (32-36); Mean Corpuscular Hgb 30.2 pg (27.0-32.0); Mean Corpuscular Volume 94.8 fL (81-99); Mean Platelet Vol. 9.4 fl (6.2-12.0); Monocyte% 10.1 % (0-10); NRBC Flagged by Analyzer 0 % (0-5); Neutrophil # 2.09 X10^3/uL (2.7-7.7); Neutrophil % 42.5 % (47-70); POSITIVE MORPHOLOGY YES; Platelet Count 352 K/mm3 (150-450); RBC Distribution Width CV 19.3 % (11.6-14.6); RBC Distribution Width SD 66.8 fl (35.1-43.9); Red Blood Count 3.48 M/mm3 (4.2-5.4); White Blood Count 4.9 K/mm3 (4.4-11.0)
--- NOTE | 2022-09-02 15:20 | RAD_ITS ---
STUDY: XR Chest 2 Views 09/02/2022 3:27 PM REASON FOR EXAM: Female, 67 years old. CHEST PAIN PT WITH SWELLING AND EDEMA TO LEFT ANKLE. STATES FEELS SOB AND HAS NO ENERGY. HX OF VASCULAR ISSUES Dyspnea on exertion COMPARISON: None TECHNIQUE: XR Chest 2 Views FINDINGS: There is no demonstrated pleural abnormality. Lumbar spinal fixation hardware noted. Normal heart size. Normal mediastinum. Normal dominguez. Prominent appearing increased interstitial lung markings. Normal visualized pulmonary arteries. There is atherosclerotic calcification of the aortic arch with tortuosity. There are diffuse degenerative changes of the visualized thoracic spine. There is degenerative osteoarthritis of the bilateral shoulders. There is no demonstrated abnormality of the visualized soft tissue structures of the upper abdomen. RAD/Chest PA and Lateral IMPRESSION: There are no acute findings. Electronically Signed: Ricky Villar MD at 15:49 EDT ,
[2022-09-02 15:32] LABS: Differential Indicated SCAN CRITERIA MET
[2022-09-02 15:38] LABS: Anion Gap 4 (5-15); BUN 18 mg/dL (7-18); BUN/Creat Ratio 22.5 RATIO (10-20); Calcium,Total 9.1 mg/dL (8.5-10.1); Chloride 108 mmol/L (98-107); EST Glomerular Filtration Rate 75 mL/min (>60); Est Glom Filt Rate - Afr Amer 91 mL/min (>60); Estimated Creatinine Clearance 57.31 ml/min; Glucose 99 mg/dL (74-106); Potassium 3.7 mmol/L (3.5-5.1); Sodium Level 139 mmol/L (136-145); Troponin-I HS 10 pg/mL (3.0-54.0)
[2022-09-02 15:44] LABS: D-Dimer Quantitative (DVT/PE) 0.53 FEU/ug/m (0.27-0.49)
[2022-09-02 15:58] LABS: Anisocytosis 1+; Differential Comment SCANNED
[2022-09-02] MEDS: APIXABAN 5 MG TABLET 10 MG PO (16:06)
== END 2022-09-02 16:12 | disposition home or self-care (01) ==
LOC: ED 16:04
PROVIDERS: Emergency Provider Emergency Medicine; PCP Student in an Organized Health Care Education/Training Program; Visit Provider Emergency Medicine
DX: M79.662 Pain in left lower leg (principal); M06.9 Rheumatoid arthritis, unspecified; M32.9 Systemic lupus erythematosus, unspecified; I10 Essential (primary) hypertension; I73.00 Raynaud's syndrome without gangrene; I87.8 Other specified disorders of veins; Z79.899 Other long term (current) drug therapy; Z79.52 Long term (current) use of systemic steroids; Z90.49 Acquired absence of other specified parts of digestive tract; M79.89 Other specified soft tissue disorders; I80.00 Phlebitis and thrombophlebitis of superficial vessels of unspecified lower extremity; R79.1 Abnormal coagulation profile; R06.00 Dyspnea, unspecified
CPT/HCPCS: 71046; 80048; 84484; 85025; 85379; 93005; 99285; A4216

== ENCOUNTER → 2022-09-03 | Outpatient (CLI) | payer MEDICARE, SELFPAY ==
--- NOTE | 2022-09-03 11:21 | VDLE_ITS ---
Reason For Study: elevated D-Dimer, LLE swelling RIGHT LEFT CFV is compressible, spontaneous, phasic, GSV is normal. competent and demonstrates normal CFV is compressible, spontaneous, phasic, augmentation. competent, and demonstrates normal Procedure augmentation. This is a venous duplex using B-mode, color FV is compressible, spontaneous, phasic, flow and spectral Doppler. competent and demonstrates normal Exam performed in department. augmentation. The exam was diagnostic. POP V is compressible, spontaneous, phasic, A preliminary report was called and/or faxed competent and demonstrates normal to Gucci Lazaro @ 11:45 am @ [phone]. augmentation. T/P Trunk is compressible. PTV is compressible. LT PerV is compressible. VL/Venous Duplex US, Unilateral Interpretation Summary Deep veins of the left lower extremity are patent and compressible segmentally. There is no evidence of left lower extremity deep vein thrombosis. The left great saphenous vein ahmet ears patent and compressible segmentally. Ordering Physician: Konstantin Napier Referring Physician: Gucci Lazaro Performed By: Jadyn Mcnally, DANIEL, RVT
== END | disposition home or self-care (01) ==
LOC: US 11:03
PROVIDERS: PCP Student in an Organized Health Care Education/Training Program; Visit Provider Emergency Medicine
DX: R22.42 Localized swelling, mass and lump, left lower limb (principal)
CPT/HCPCS: 93971

== ENCOUNTER → 2022-09-08 | Outpatient (CLI) | payer MEDICARE, SELFPAY ==
--- NOTE | 2022-09-08 12:55 | RAD_ITS ---
STUDY: X-RAY - LEFT KNEE REASON FOR EXAM: Female, 67 years old. SWELLING TECHNIQUE: 3 view(s) of the knee. COMPARISON: None. FINDINGS: Normal visualized distal femur. Normal visualized proximal tibia and fibula. Normal proximal tibiofibular articulation. Normal medial femorotibial compartment. Normal lateral femorotibial compartment. Normal patellofemoral articulation. The soft tissue structures are unremarkable. RAD/Knee 4 or More Views IMPRESSION: Normal x-ray examination of the knee. Electronically Signed: Saravanan Unger MD at 23:06 EDT ,
--- NOTE | 2022-09-08 13:33 | US_ITS ---
STUDY: SUPERFICIAL ULTRASOUND - LEFT POPLITEAL FOSSA. REASON FOR EXAM: Female, 67 years old. SWELLING of LLE EVAL FOR POP BURSA TECHNIQUE: A superficial ultrasound was performed with real-time and static draper-scale imaging. COMPARISON: None. FINDINGS: Imaging of the left popliteal fossa was performed. There is no evidence of a fluid collection. No evidence of popliteal cyst. US/Ext Non Vasc Limited/Soft Tiss IMPRESSION: Unremarkable examination. Electronically Signed: Larry Sethi MD at 11:00 EDT ,
== END | disposition home or self-care (01) ==
PROVIDERS: PCP Student in an Organized Health Care Education/Training Program
DX: Z09 Encounter for follow-up examination after completed treatment for conditions other than malignant neoplasm (principal); M79.89 Other specified soft tissue disorders
CPT/HCPCS: 73564; 76882

== ENCOUNTER → 2023-01-23 | Outpatient (CLI) | payer MEDICARE, SELFPAY ==
--- NOTE | 2023-01-23 08:49 | VDLE_ITS ---
Reason For Study: Varicose Veins RIGHT LEFT CFV is compressible, spontaneous, phasic, CFV is compressible, spontaneous, phasic, competent and demonstrates normal competent, and demonstrates normal augmentation. augmentation. FV is compressible, spontaneous, phasic, FV is compressible, spontaneous, phasic, competent and demonstrates normal competent and demonstrates normal augmentation. augmentation. POP V is compressible, spontaneous, phasic, POP V is compressible, spontaneous, phasic, competent and demonstrates normal competent and demonstrates normal augmentation. augmentation. T/P Trunk is compressible. T/P Trunk is compressible. PTV is compressible. PTV is compressible. RT PerV is compressible. LT PerV is compressible. SFJ is INCOMPETENT and measures 0.60 cm. SFJ is competent and measures 0.60 cm. Rt GSV Hx Ablation prox thigh - dist calf. GSV proximal thigh measures 0.27 x 0.25 cm. ASV proximal thigh is INCOMPETENT for greater GSV at knee measures 0.46 x 0.46 cm. than 0.5 seconds and measures 0.50 x 0.51 cm. GSV above knee is competent. GSV below knee is INCOMPETENT for greater ASV mid thigh is INCOMPETENT for greater than than 0.5 seconds. 0.5 seconds and measures 0.32 x 0.33 cm. ASV proximal thigh is INCOMPETENT for greater Multiple varicosities noted in mid/dist thigh than 0.5 seconds and measures 0.34 x 0.38 cm. appearing to connect to ASV. ASV mid thigh is INCOMPETENT for greater than Rt Perforating vessel 6-7 cm below knee is 0.5 seconds and measures 0.32 x 0.37 cm. INCOMPETENT for >0.5 sec and measures 0.31cm SSV proximal calf is competent and measures in long axis. 0.13 x 0.13 cm. Multiple varicosities throughout calf noted SSV Branch mid calf is INCOMPETENT for >0.5 as INCOMPETENT for >0.5 sec. and appear to sec and measures 0.24cm x 0.29cm. connect with perforating vessel. Rt Vein of Giacomini is noted as INCOMPTENT for >0.5 sec and measures 0.27cm in long axis. SSV proximal calf is competent and measures 0.22 x 0.23 cm. Procedure Exam performed in department. The exam was diagnostic. VL/Venous Duplex US - Joshua Extrem Interpretation Summary Bilateral no DVT. Right GSV ablated. Right ASV with reflux into varicosities. R ight Vein of G with reflux into branches. Left ASV reflux into branches. Below knee GSv reflux. Ordering Physician: Gucci Lazaro Referring Physician: Prakash Muro Performed By: Julito Cornelius RVT
== END | disposition home or self-care (01) ==
LOC: CVS 08:47
PROVIDERS: PCP Student in an Organized Health Care Education/Training Program; Referring Provider Surgery Vascular Surgery; Visit Provider Surgery Vascular Surgery
DX: I83.893 Varicose veins of bilateral lower extremities with other complications (principal)
CPT/HCPCS: 93970

== ENCOUNTER 2023-10-27 14:51 | Emergency (ER) | payer MEDICARE, SELFPAY ==
[2023-10-27 14:52] VITALS: BP 166/108; PULSE 87; RESP 16; TEMP 36.4; O2SAT 100; BMI 38.9
--- NOTE | 2023-10-27 15:02 | EX.ED.DYSGE1 ---
HPI History of Present Illness Chief Complaint: Headache [facility] Medical History (Updated 10/27/23 @ 16:[address] Sheng Pinto, DO) Basal cell carcinoma Anemia Fall Fusion of lumbar spine Home Medications ?Medication ?Instructions ?Recorded ?Last Taken ?Type cyclobenzaprine 10 mg tablet 10 mg PO QHS PRN PRN Muscle Spasm 11/10/19 Unknown Rx #7 tabs hydrochlorothiazide 25 mg tablet 12.5 mg (1/2 x 25 mg) PO DAILY #30 09/07/20 Unknown Rx TABLETS polyethylene glycol 3350 17 4 g PO DAILY 01/13/22 Unknown History gram/dose oral powder folic acid 1 mg tablet 2 mg PO DAILY 01/16/22 Unknown History methotrexate sodium 2.5 mg tablet 20 mg PO QWEEK 01/16/22 Unknown History prednisone 5 mg tablet 5 mg PO DAILY PRN 01/16/22 Unknown History apixaban 5 mg tablet (Eliquis) 5 mg PO .Morning #2 tabs 09/02/22 Unknown Rx amlodipine 5 mg tablet 10 mg PO DAILY 01/15/23 Unknown History duloxetine 30 mg capsule,delayed 30 mg PO DAILY 01/15/23 Unknown History release rosuvastatin 5 mg tablet 5 mg PO DAILY 01/15/23 Unknown History metoclopramide HCl 5 mg tablet 5 mg PO Q8H PRN PRN headache 3 10/27/23 Unknown Rx (Reglan) days #9 tabs prednisone 50 mg tablet 50 mg PO DAILY #5 tabs 10/27/23 Unknown Rx Allergy/AdvReac Type Severity Reaction Status Date / Time hydroxychloroquine (From Allergy Rash Verified 10/27/23 14:53 Plaquenil) lisinopril AdvReac COUGHING Verified 10/27/23 14:53 Family History (Updated 01/15/23 @ 11:36 by Aliza Hernandez) Grandmother Arthritis Father Cancer Diabetes Glaucoma Heart disease Hypertension Prostate cancer CVA (cerebral vascular accident) Mother Colon cancer Diabetes Heart disease Hypertension Arthritis Sister Diabetes Hypertension Brother Diabetes Heart disease Hypertension Prostate cancer Grandfather Heart disease Son Seizures Sister Ovarian cancer 2 sisters 1 living, 1 (from a PE post op) Surgical History History of local excision of skin lesion Hx of cholecystectomy H/O section Hx of colonoscopy History of herniorrhaphy Hx of vein stripping Hx of knee surgery Social History household members: none number of children: 3 current occupational status: retired current occupational exposures/hazards: No history of recent travel: No Smoking Status: Never smoker alcohol intake: never substance use type: does not use caffeine: Yes Type: coffee Number of servings: 1 EXAM Physical Exam Const Vital Signs: 10/27/23 14:52 10/27/23 16:38 Temperature 97.5 F L 97.5 F L Temperature Source Temporal Pulse Rate 87 78 Respiratory Rate 16 18 Blood Pressure 166/108 H 145/88 H Blood Pressure Mean 127 107 Pulse Ox 100 99 Oxygen Delivery Method Room Air MDM MDM MDM Narrative Medical decision making narrative: HISTORY OF PRESENT ILLNESS: 68-year-old female presents today for 1 week. States 2 weeks ago she underwent cervical ablation of C3, C 4 and C5. 1 week after she developed increasing pain and tightness and a pulling sensation over her nuchal ridge. Since then pain is waxed and waned is been constant. Denies any trauma. Falls. Denies any focal weakness. Denies any vomiting. Denies any family process or brain aneurysms or brain bleeding. Patient denies sudden onset or thunderclap headache, denies maximal intensity within 1 minute, vomiting, neck pain, stiffness, changes in vision, fever, history of malignancy, syncope, or seizures associated with headache. REVIEW OF SYSTEMS: Pertinent positives: Headache Pertinent negatives: Vomiting, focal weakness, visual disturbance PHYSICAL EXAM: Nursing triage notes reviewed, Vital signs reviewed Constitutional: please see mdm HENT: MMM, no temporal artery tenderness Eyes: Pupils equal round and reactive to light, Extraocular muscles intact, visual resendez intact, no nystagmus Neck: No stridor, no JVD, full neck ROM, no carotid bruits, TTP over paraspinal cervical muscles at the insertion joint at the nuchal ridge. Lungs: Clear to auscultation, No wheezing or rales. No increased work of breathing, no conversational dyspnea, no accessory muscle use, no nasal flaring. No respiratory distress noted Heart: Regular rate and rhythm, No murmurs, No rubs and No gallops, 2+ distal pulses (radial, femoral, posterior tibial) in all extremities Abdomen: Soft, there is no tenderness, rigidity, rebound or guarding, no obvious peritoneal signs, no palpable pulsatile abdominal masses, no auscultated abdominal bruit : No CVAT Extremities: No edema Neuro: Alert and oriented x3, neuro exam at baseline, cranial nerves II through XII are intact. No pain with extraocular muscle movement. There is negative test of skew. 5 of 5 strength in upper and lower extremities in flexion extension. Intact sensation to light touch in upper and lower extremity dermatomes. No truncal or extremity ataxia. No dysdiadochokinesia. Normal gait. 2+ reflexes in upper and lower extremities. No meningeal signs. Negative Babinski. NIH of 0. Skin: No rash or lesions noted MEDICAL DECISION MAKING: Chief Complaint: Headache External records reviewed: Imaging reviewed: No recent advanced imaging of the brain Factors affecting care:. SLE, fibromyalgia, hyperlipidemia, hypertension Social determinants of health: denies drug use History obtained from others: none Consults: none MDM Narrative: Patient was mildly hypertensive but otherwise afebrile and nontoxic-appearing initially. Patient had no focal neurologic deficits. I considered the following differential diagnosis: ICH, mass, tension headache, temporal arteritis, meningitis, carotid artery dissection or occlusion I opted to obtain a CT scan of the head given her advanced age and report of new headache to rule out mass or ICH. I treated her symptomatically with oral Reglan, prednisone and Tylenol. ALL IMAGES (IF OBTAINED) HAVE BEEN PERSONALLY REVIEWED AND INTERPRETED BY MYSELF. CT scan of the brain was negative for ICH or mass The synthesis of the patient's history, physical exam, images suggest likely tension headache. No evidence of meningitis, ICH, temporal arteritis. Likely tension headache given recent procedure and hypertonic posterior cervical musculature. The patient and/or family, caregivers express understanding. The patient and/or family, caregivers agrees with the plan. Shared decision making: I will have a discussion with the patient and or visitors regarding risk/benefits of further testing or admission. They will be made aware of of the risk/benefits inherent in this decision they will be given the opportunity to voice understanding. Total critical care time today provided was at least 0 minutes. This excludes separately billable procedures. Critical care time (if documented) is secondary to the patient having high probability of clinically significant/life threatening deterioration in the patient's condition which required my urgent intervention. Impression: 1. Acute tension Headache 2. History of fibromyalgia Dispo: Discharge home This note was generated with [employer] dictation software. It may contain incorrect words, spelling, and punctuation that were not noted in review of the chart prior to signing. Radiography Diagnostic Testing: Clinical Impression(s) from Imaging Studies Brain CT 10/27/23 15:25 IMPRESSION: No acute intracranial abnormality. Electronically Signed: Anshu Tam MD at 16:08 EDT Reading Location ID and State: [address] [place] [address] Tel , Service support , Discharge Plan Triage Chief Complaint: Headache ED Provider: Sehng Pinto Dx/Rx/DC Orders Clinical Impression: Acute tension headache Instructions: ED Headache, Tension Prescriptions: New prednisone 50 mg tablet 50 mg PO DAILY Qty: 5 0RF metoclopramide HCl [Reglan] 5 mg tablet 5 mg PO Q8H PRN PRN (Reason: headache) 3 Days Qty: 9 0RF No Action polyethylene glycol 3350 17 gram/dose powder 4 g PO DAILY folic acid 1 mg tablet 2 mg PO DAILY methotrexate sodium 2.5 mg tablet 20 mg PO QWEEK Patient Comments: takes 4 tabs in AM, then 4 tabs in PM prednisone 5 mg tablet 5 mg PO DAILY PRN amlodipine 5 mg tablet 10 mg PO DAILY rosuvastatin 5 mg tablet 5 mg PO DAILY duloxetine 30 mg capsule,delayed release(DR/EC) 30 mg PO DAILY cyclobenzaprine 10 MG tablet 10 mg PO QHS PRN PRN (Reason: Muscle Spasm) Qty: 7 0RF hydrochlorothiazide 25 MG tablet 12.5 mg PO DAILY Qty: 30 0RF Eliquis 5 mg tablet 5 mg PO .Morning Qty: 2 0RF Rx Instructions: Take in the morning upon awakening prior to venous duplex study Primary Care Provider: Gucci Lazaro Referrals: Gucci Lazaro DO [Primary Care Provider] - Activity Restrictions/Additional Instructions: Thank you for trusting us with your care today! Please take Tylenol (2 pills, 650 mg), ibuprofen (2 pills, 400 mg) every 6 hours as needed for pain and fever control. Please take Reglan as needed for breakthrough pain if the above regimen does not control your symptoms. Please take prednisone daily as prescribed Please return to the emergency department if your symptoms change or worsen. Specifically develop focal numbness, weakness, loss sensation, slurred speech, loss of vision, worsening headache. Please follow with your primary care physician for further outpatient evaluation and management. Print Language: Syriac Disposition Disposition: Home, Self Care Discharge Date/Time: 10/27/23 16:39
--- NOTE | 2023-10-27 15:25 | CT_ITS ---
EXAM: CT HEAD WITHOUT INTRAVENOUS CONTRAST CLINICAL INDICATION: headache TECHNIQUE: Multiple axial images were obtained of the head without intravenous contrast. This CT exam was performed using one or more of the following dose reduction techniques: automated exposure control, adjustment of the mA and/or kV according to patient size, and/or use of iterative reconstruction technique. COMPARISON: No relevant prior studies available. FINDINGS: BRAIN AND EXTRA-AXIAL SPACES: Normal. Normal brain attenuation. No intra- or extra-axial hemorrhage. No acute infarct. No intracranial mass or mass effect. There is preservation of the draper/white matter interface. Posterior fossa structures are unremarkable. Ventricles are appropriate for age. No hydrocephalus. Basal cisterns are patent. BONES/JOINTS: Normal calvarium. SINUSES: No acute sinusitis. MASTOID AIR CELLS: Normal. Clear. CT/Brain/Head without Contrast IMPRESSION: No acute intracranial abnormality. Electronically Signed: Anshu Tam MD at 16:08 EDT ,
[2023-10-27] MEDS: Acetaminophen 325 MG Tablet 650 MG PO (15:57)
[2023-10-27] MEDS: predniSONE 20 MG Tablet 40 MG PO (15:57)
[2023-10-27] MEDS: Metoclopramide 5 MG TABLET PO (15:57)
[2023-10-27 16:38] VITALS: BP 145/88; PULSE 78; RESP 18; TEMP 36.4; O2SAT 99
== END 2023-10-27 16:39 | disposition home or self-care (01) ==
PROVIDERS: Emergency Provider Emergency Medicine; PCP Student in an Organized Health Care Education/Training Program; Visit Provider Emergency Medicine
DX: G44.209 Tension-type headache, unspecified, not intractable (principal); M32.9 Systemic lupus erythematosus, unspecified; E78.5 Hyperlipidemia, unspecified; I10 Essential (primary) hypertension; Z90.49 Acquired absence of other specified parts of digestive tract; Z79.899 Other long term (current) drug therapy; M79.7 Fibromyalgia
CPT/HCPCS: 70450; 99283

== ENCOUNTER → 2025-03-30 | Outpatient (CLI) | payer MEDICARE, SELFPAY ==
--- NOTE | 2025-03-30 11:04 | VDLE_ITS ---
Reason For Study Reason For Study: Left leg pain RIGHT LEFT CFV is compressible, spontaneous, phasic, competent GSV is normal. and demonstrates normal augmentation. CFV is compressible, spontaneous, phasic, competent, Procedure and demonstrates normal augmentation. This is a venous duplex using B-mode, color flow and FV is compressible, spontaneous, phasic, competent spectral Doppler. and demonstrates normal augmentation. Exam performed in department. POP V is compressible, spontaneous, phasic, competent A preliminary report was called and/or faxed to and demonstrates normal augmentation. Ashli. T/P Trunk is compressible. PTV is compressible. LT PerV is compressible. VL/Venous Duplex US, Unilateral Interpretation Summary Deep veins of the left lower extremity are patent and compressible segmentally. There is no evidence of left lower extremity deep vein thrombosis. Valvular competence appears intact within the p roximal deep venous system on the left . The left great saphenous vein appears patent and compressible segmentally. The right common femoral vein is patent and compressible . Ordering Physician: Salbador Cornelius Referring Physician: Gucci Lazaro Performed By: Charo Choi RVT
== END | disposition home or self-care (01) ==
LOC: CVS 11:03
PROVIDERS: PCP Student in an Organized Health Care Education/Training Program; Referring Provider Podiatrist; Visit Provider Podiatrist
DX: M79.662 Pain in left lower leg (principal); M79.89 Other specified soft tissue disorders
CPT/HCPCS: 93971